=== PATIENT | female | born 1935 | race Caucasian/White ===

== ENCOUNTER 2019-02-17 18:25 | Emergency (ER) | payer OTHER ==
[~2019-02-17] VITALS: Ht 154.9 cm; Wt 68.0 kg
--- OUTSIDE RECORDS SUMMARY | 2019-02-17 18:27 | XMS REPORT | Summary of Care ---
Author Author [facility] Organization [facility] Address Unknown Phone Unavailable Encounter ROCK Aparicio(FIN) [id number] Date(s): 02/18/18 - 02/18/18 [facility] [address] [place] [phone] Discharge Disposition: Home or Self Care Attending Physician: Kalyan Rob MD Vital Signs No data available for this section Problem List Condition Effective Dates Status Health Status Informant Arthritis1 Active Benign hypertension2 Active Coronary Active arteriosclerosis3 Epidermoid cyst of 05/10/08 Active skin4 Hypercholesterolemia Active 5 Hypothyroidism6 Active Obesity7 Active Urgent desire to 04/26/08 Active urinate8 1Data migrated from [employer] on 03/25/15. 2Data migrated from [employer] on 03/25/15. 3Data migrated from [employer] on 03/25/15. 4Data migrated from [employer] on 03/25/15. 5Data migrated from [employer] on 03/25/15. 6Data migrated from [employer] on 03/25/15. 7Data migrated from [employer] on 03/25/15. 8Data migrated from [employer] on 03/25/15. Allergies, Adverse Reactions, Alerts Substance Reaction Severity Status penicillins1 Active macrolide antibiotics Active erythromycin2 Active Levaquin Active 1Data migrated from [employer] on 05/25/15. Originally documented as PCN. 2Data migrated from [employer] on 02/23/15. Originally documented as ERYTHROMYCIN. Medications No data available for this section Results No data available for this section Immunizations Given and Recorded Vaccine Date Status Refusal Reason pneumococcal 23-valent vaccine1 10/27/07 Given Hx influenza vaccine-unspecified2 07/27/07 Given 1Result Comment: pneumovax. Migrated from OBS ; Data migrated from [employer] on 11/27/2015. 2Result Comment: fluvax. Migrated from OBS ; Data migrated from [employer] on 11/27/2015. Procedures No data available for this section Social History No data available for this section Assessment and Plan No data available for this section
--- OUTSIDE RECORDS SUMMARY | 2019-02-17 18:27 | XMS REPORT | Summary of Care ---
Author Organization Unknown Address Unknown Phone Unavailable Encounter ROCK Aparicio(MATIAS) [id number] Date(s): 02/24/14 - 02/25/14 [facility] [address] Discharge Diagnosis: Acute gastritis Discharge Disposition: Home Physician Attending: Alen Serrano MD Reason for Visit CHEST PAIN Vital Signs 1 2 3 Most recent to oldest [Reference Range]: 98.0 DegF (02/25/14 2:32 AM) 97.9 DegF (02/24/14 10:20 PM) Temperature Oral [96.4-99.1 DegF] 148 mmHg *HI* (02/25/14 2:32 AM) 145 mmHg *HI* (02/24/14 11:25 PM) 151 mmHg *HI* (02/24/14 10:20 PM) Systolic Blood Pressure [90-140 mmHg] 65 mmHg (02/25/14 2:32 AM) 62 mmHg (02/24/14 11:25 PM) 63 mmHg (02/24/14 10:20 PM) Diastolic Blood Pressure [60-90 mmHg] 16 BRMIN (02/25/14 2:32 AM) 16 BRMIN (02/24/14 11:25 PM) 18 BRMIN (02/24/14 10:20 PM) Respiratory Rate [14-20 BRMIN] 62 bpm (02/25/14 2:32 AM) 56 bpm *LOW* (02/24/14 11:25 PM) 63 bpm (02/24/14 10:20 PM) Peripheral Pulse Rate [60-100 bpm] Problem List No data available for this section Allergies, Adverse Reactions, Alerts Substance Reaction Severity Status erythromycin Active Levaquin Active macrolide antibiotics Active penicillins Active Medications morphine Sulfate 1 mg, Route: IV, ONCE, Dosing Weight 80.909, kg, Start date: 02/25/14 1:43:00, S top date: 02/25/14 1:43:00 Start Date: 02/25/14 Stop Date: 02/25/14 Status: Completed Prevacid 30 mg oral delayed release capsule 30 mg=1 cap, PO, Daily, # 30 cap, 0 Refill(s) Start Date: 02/25/14 Status: Ordered Saline Flush 0.9% 5 mL, Route: IVP, Drug Form: INJ, Dosing Weight 80.909, kg, Q8H, PRN Line Flush, Start date: 02/24/14 22:47:00, Duration: 30 day, Stop date: 03/26/14 22:46:00, Administer at least once every 8 hours Special Instructions: Administer at least once every 8 hours Notes: (Same as: BD Posiflush) Start Date: 02/24/14 Stop Date: 02/25/14 Status: Discontinued Results ELECTROLYTES Most recent to 1 oldest [Reference Range]: Sodium Lvl [135-145 133 mEq/L mEq/L] *LOW* (02/24/14 11:00 PM) Potassium Lvl 4.6 mEq/L [3.5-5.1 mEq/L] (02/24/14 11:00 PM) Chloride Lvl [95-109 101 mEq/L mEq/L] (02/24/14 11:00 PM) CO2 [24-32 mEq/L] 20 mEq/L *LOW* (02/24/14 11:00 PM) AGAP [10.0-20.0 16.6 mEq/L mEq/L] (02/24/14 11:00 PM) CHEM PANEL Most recent to 1 oldest [Reference Range]: Creatinine Lvl 1.8 mg/dL [0.5-1.4 mg/dL] *HI* (02/24/14 11:00 PM) eGFR 26 mL/min/1.73m2 1 *NA* (02/24/14 11:00 PM) BUN [7-22 mg/dL] 38 mg/dL *HI* (02/24/14 11:00 PM) B/C Ratio [6-25] 21 (02/24/14 11:00 PM) Glucose Lvl [70-99 135 mg/dL 2 mg/dL] *HI* (02/24/14 11:00 PM) Total Protein 7.8 g/dL [6.4-8.4 g/dL] (02/24/14 11:00 PM) Albumin Lvl [3.5-5.0 3.8 g/dL g/dL] (02/24/14 11:00 PM) Globulin [2.0-4.0 4.0 g/dL g/dL] (02/24/14 11:00 PM) A/G Ratio [0.7-1.6] 1.0 (02/24/14 11:00 PM) Calcium Lvl 9.0 mg/dL [8.5-10.5 mg/dL] (02/24/14 11:00 PM) ALT [0-65 unit/L] 15 unit/L (02/24/14 11:00 PM) AST [0-37 unit/L] 21 unit/L (02/24/14 11:00 PM) Alk Phos [39-136 75 unit/L unit/L] (02/24/14 11:00 PM) Bili Total [0.2-1.3 0.3 mg/dL mg/dL] (02/24/14 11:00 PM) Lipase Lvl [73-393 183 unit/L unit/L] (02/24/14 11:00 PM) 1Result Comment: The eGFR is calculated using the CKD-EPI formula. In most young, healthy individuals the eGFR will be >90 mL/min/1.73m2. The eGFR declines with age. An eGFR of 60-89 may be normal in some populations, particularly the elderly, for whom the CKD-EPI formula has not been extensively validated. Use of the eGFR is not recommended in the following populations: Individuals with unstable creatinine concentrations, including patients and those with serious co-morbid conditions. Patients with extremes in muscle mass or diet. The data above are obtained from the National Kidney Disease Education Program ( NKDEP) which additionally recommends that when the eGFR is used in patients with extremes of body mass index for purposes of drug dosing, the eGFR should be mul tiplied by the estimated BMI. 2Interpretive Data: Adult reference range values reflect the clinical guidelines of the [place] Diabetes [employer]. CARDIAC ENZYMES Most recent to 1 oldest [Reference Range]: Total CK [12-191 69 unit/L unit/L] (02/24/14 11:00 PM) CK MB [0.5-3.6 1.6 ng/mL ng/mL] (02/24/14 11:00 PM) CK MB Index 2.3 [0.0-2.5] (02/24/14 11:00 PM) Troponin-I <0.02 ng/mL [0.00-0.40 ng/mL] (02/24/14 11:00 PM) HEMATOLOGY Most recent to 1 oldest [Reference Range]: WBC [3.7-10.4 K/CMM] 10.2 K/CMM (02/24/14 11:00 PM) RBC [4.20-5.40 3.71 M/CMM M/CMM] *LOW* (02/24/14 11:00 PM) Hgb [12.0-16.0 g/dL] 11.5 g/dL *LOW* (02/24/14 11:00 PM) Hct [36.0-48.0 %] 34.3 % *LOW* (02/24/14 11:00 PM) MCV [81.0-99.0 fL] 92.4 fL (02/24/14 11:00 PM) MCH [27.0-31.0 pg] 31.0 pg (02/24/14 11:00 PM) MCHC [32.0-36.0 33.6 g/dL g/dL] (02/24/14 11:00 PM) RDW [11.5-14.5 %] 13.6 % (02/24/14 11:00 PM) Platelet [133-450 224 K/CMM K/CMM] (02/24/14 11:00 PM) MPV [7.4-10.4 fL] 11.1 fL *HI* (02/24/14 11:00 PM) Segs [45.0-75.0 %] 72.5 % (02/24/14 11:00 PM) Lymphocytes 14.2 % [20.0-40.0 %] *LOW* (02/24/14 11:00 PM) Monocytes [2.0-12.0 8.5 % %] (02/24/14 11:00 PM) Eosinophils [0.0-4.0 2.7 % %] (02/24/14 11:00 PM) Basophils [0.0-1.0 2.1 % %] *HI* (02/24/14 11:00 PM) Segs-Bands # 7.4 K/CMM [1.5-8.1 K/CMM] (02/24/14 11:00 PM) Lymphocytes # 1.5 K/CMM [1.0-5.5 K/CMM] (02/24/14 11:00 PM) Monocytes # [0.0-0.8 0.9 K/CMM K/CMM] *HI* (02/24/14 11:00 PM) Eosinophils # 0.3 K/CMM [0.0-0.5 K/CMM] (02/24/14 11:00 PM) Basophils # [0.0-0.2 0.2 K/CMM K/CMM] (02/24/14 11:00 PM) RBC Morph Normal (02/24/14 11:00 PM) Plt Morph Normal (02/24/14 11:00 PM) PT [12.0-14.7 12.7 seconds seconds] (02/24/14 11:00 PM) INR [0.85-1.17] 0.96 3 (02/24/14 11:00 PM) PTT [22.9-35.8 29.1 seconds 4 seconds] (02/24/14 11:00 PM) 3Interpretive Data: RECOMMENDED RANGES FOR PROTIME INR: 2.0-3.0 for most medical and surgical thromboembolic states. 2.5-3.5 for artificial heart valves and recurrent embolism. INR SHOULD BE USED ONLY FOR PATIENTS ON STABLE ANTICOAGULANT THERAPY. 4Interpretive Data: Heparin Therapeutic Range: 57 - 92 Seconds Medications Administered During Your Visit No data available for this section Immunizations No data available for this section
--- OUTSIDE RECORDS SUMMARY | 2019-02-17 18:27 | XMS REPORT | Continuity of Care Document ---
Author Author [facility] Interface Address Unknown Phone Unavailable Problems Problem Status Onset Date Classification Date Reported Comments Source Encounter for general adult medical examination with abnormal findings 02/04/2018 05/05/2018 [facility] [place] Discharge Diagnosis: Acute gastritis 02/25/2014 02/27/2014 [facility] CHEST PAIN Active 02/24/2014 [facility] Epidermoid cyst of skin<sup>4</sup> Active 05/10/2008 Problem 05/05/2018 Data migrated from [employer] on 03/25/15. [facility] [place] Urgent desire to urinate<sup>8</sup> Active 04/26/2008 Problem 05/05/2018 Data migrated from [employer] on 03/25/15. [facility] [place] Arthritis<sup>1</sup> Active Problem 05/05/2018 Data migrated from [employer] on 03/25/15. [facility] [place] Benign hypertension<sup>2</sup> Active Problem 05/05/2018 Data migrated from [employer] on 03/25/15. [facility] [place] Coronary arteriosclerosis<sup>3</sup> Active Problem 05/05/2018 Data migrated from [employer] on 03/25/15. [facility] [place] Hypercholesterolemia<sup>5</sup> Active Problem 05/05/2018 Data migrated from [employer] on 03/25/15. [facility] [place] Hypothyroidism<sup>6</sup> Active Problem 05/05/2018 Data migrated from [employer] on 03/25/15. [facility] [place] Obesity<sup>7</sup> Active Problem 05/05/2018 Data migrated from [employer] on 03/25/15. [facility] [place] Atelectasis 05/05/2018 [facility] [place] Medications Medication Details Route Status Patient Instructions Ordering Provider Order Date Source lansoprazole 30 MG Enteric Coated Capsule [Prevacid] 30 mg=1 cap, PO, Daily, # 30 cap, 0 Refill(s) Active 02/25/2014 [facility] Morphine 1 mg, Route: IV, ONCE, Dosing Weight 80.909, kg, Start date: 02/25/14 1:43:00, Stop date: 02/25/14 1:43:00 Inactive 02/25/2014 [facility] Saline Flush 0.9% 5 mL, Route: IVP, Drug Form: INJ, Dosing Weight 80.909, kg, Q8H, PRN Line Flush, Start date: 02/24/14 22:47:00, Duration: 30 day, Stop date: 03/26/14 22:46:00, Administer at least once every 8 hoursSpecial Instructions: Administer at least once every 8 hoursNotes: (Same as: BD Posiflush) No Longer Active 02/25/2014 [facility] Allergies, Adverse Reactions, Alerts Substance Category Reaction Severity Reaction type Status Date Reported Comments Source erythromycin Assertion Drug allergy Active 06/23/2004 [facility] penicillins Assertion Propensity to adverse reactions to drug Active 06/23/2004 [facility] penicillins<sup>1</sup> Assertion Drug allergy Active 06/23/2004 Data migrated from [employer] on 05/25/15. Originally documented as PCN. YEVGENIY Nguyenadena erythromycin<sup>2</sup> Assertion Drug allergy Active 06/23/2004 Data migrated from [employer] on 02/23/15. Originally documented as ERYTHROMYCIN. YEVGENIY Rivera Levaquin Assertion Drug allergy Active YEVGENIY Arreguina macrolide antibiotics Assertion Drug allergy Active YEVGENIY Rivera Immunizations Immunization Date Given Site Status Last Updated Comments Source pneumococcal 23-valent vaccine<sup>1</sup> 10/27/2007 completed GE Result Comment: pneumovax. Migrated from OBS ; Data migrated from [employer] on 11/27/2015. YEVGENIY Rivera Hx influenza vaccine-unspecified<sup>2</sup> 07/27/2007 completed GE Result Comment: fluvax. Migrated from OBS ; Data migrated from [employer] on 11/27/2015. 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 Mild to moderate diffuse interstitial process with small effusions. No pneumothorax. Mild discogenic degenerative changes are noted. IMPRESSION: Mild to moderate interstitial edema and small effusions. 02/16/2019 - - Read by: Ailyn Coyne MD Dictated Date/time: 02/16/19 14:35 Electronically Signed by: Ailyn Coyne MD 02/16/19 14:36 FINAL REPORT JERARDO Rivera Breast Mammo Scrn SIMON incl CAD MA Breast Mammo Scrn SIMON incl CAD MA BILATERAL DIGITAL SCREENING MAMMOGRAM WITH CAD: 02/18/2018 CLINICAL: Encounter For Screening Mammogram For Malignant Neoplasm Of Breast/Z12.31. Current study was evaluated with a Computer Aided Detection (CAD) system. COMPARISON:No prior exams were available for comparison. TECHNIQUE: Mammographic views were obtained using digital acquisition. Current study was also evaluated with a Computer Aided Detection (CAD) system. FINDINGS: The tissue of both breasts is almost entirely fat. The technologist indicates that the patient was difficult to position and that these are the best films possible. There are benign calcifications in both breasts. No significant masses, calcifications, or other findings are seen in either breast. IMPRESSION: BENIGN RECOMMENDATION:There is no mammographic evidence of malignancy. A 1 year screening mammogram is recommended.(02/19/2019) This exam was interpreted at [id number] for JERARDO Rivera, SL 15. Professional services are provided by the [facility]. Juan Chacko M.D. cm/penrad:02/19/2018 08:21:53 Roller Printer(s): RT Sona(R)(M), [facility] letter sent: BI-RADS 1/2 Mammogram BI-RADS: 2 Benign 02/18/2018 - - Read by: Luca Cao MD Dictated Date/time: 02/19/18 08:21 Electronically Signed by: Luca Cao MD 02/19/18 08:21 FINAL REPORT JERARDO YEVGENIY Rivera Bone Density [employer] MA Bone Density [employer] MA BONE DENSITY ASSESSMENT: 02/18/2018 CLINICAL DATA: Post menopausal. Encounter For Screening For Osteoporosis/Z13.820 RISK FACTORS: race. FINDINGS: Bone density evaluation was performed 02/18/2018 on the right femur neck using a Hologic unit. The BMD average for the exam is 0.748 g/cm2. The T-score is - 0.90 and the Z-score is 1.60. This matches the World Health Organization's criteria for normal bone density and places the patient within normal limits of fracture risk. An additional bone density evaluation was performed 02/18/2018 on the left femur neck using a Hologic unit. The BMD average for the exam is 0.794 g/cm2. The T- score is -0.50 and the Z-score is 2.00. This matches the World Health Organization's criteria for normal bone density and places the patient within normal limits of fracture risk. An additional bone density evaluation was performed 02/18/2018 on the right hip using a Hologic unit. The BMD average for the exam is 0.515 g/cm2. The T-score is -3.50 and the Z-score is -1.20. This matches the World Health Organization's criteria for osteoporosis and places the patient at a high risk for fracture. An additional bone density evaluation was performed 02/18/2018 on the left hip using a Hologic unit. The BMD average for the exam is 0.967 g/cm2. The T-score is 0.20 and the Z-score is 2.50. This matches the World Health Organization's criteria for normal bone density and places the patient within normal limits of fracture risk. An additional bone density evaluation was performed 02/18/2018 on the AP L1-L4 region of spine using a Hologic unit. The BMD average for the exam is 1.196 g/cm2. The T-score is 1.40 and the Z-score is 4.20. This matches the World Health Organization's criteria for normal bone density and places the patient within normal limits of fracture risk. IMPRESSION: OSTEOPOROSIS Patient is at high risk for fracture. This exam was interpreted at [id number] for SHAKA Jones 15. Juan Chacko M.D., cm/isabella:02/19/2018 08:06:21 Roller Printer(s): Tg GUAJARDO)(Veronika), [facility] 02/18/2018 - - Read by: Luca Cao MD Dictated Date/time: 02/19/18 08:06 Electronically Signed by: Luca Cao MD 02/19/18 08:06 FINAL REPORT JERARDO Rivera Chest 2 views DX Chest 2 views DX Exam: Two-view chest x-ray Reason for Exam: - Z00.01 Encounter for general adult medical examination with abnormal findings Comparison Exam: X-ray 02/24/2014 Discussion: Cardiomediastinal silhouette is within normal limits. No pulmonary edema or pleural effusions. Nonspecific atelectasis/mild airspace consolidation seen within the left lung base, obscuring the left hemidiaphragm. Trachea is midline. No acute bony abnormalities. Moderate multilevel degenerative disc disease seen within the thoracic spine. Impression: 1. Nonspecific atelectasis/mild airspace consolidation seen within the left lung base, obscuring the left hemidiaphragm. 01/27/2018 - - Read by: Amadou Genao MD Dictated Date/time: 01/27/18 17:40 Electronically Signed by: Amadou Genao MD 01/27/18 17:42 FINAL REPORT JERARDO Rivera CARDIAC ENZYMES CK MB Index 2.3 0.0 - 2.5 02/25/2014 [facility] CARDIAC ENZYMES CK MB 1.6 ng/mL 0.5 - 3.6 02/25/2014 [facility] CARDIAC ENZYMES Troponin-I null 0.00 - 0.40 02/25/2014 [facility] CARDIAC ENZYMES Total CK 69 unit/L 12 - 191 02/25/2014 [facility] CHEM PANEL Lipase Lvl 183 unit/L 73 - 393 02/25/2014 [facility] CHEM PANEL eGFR 26 mL/min/1.73m2 02/25/2014 1Result Comment: The eGFR is calculated using [...] from the National Kidney Disease Education Program (NKDEP) which additionally recommends that when the eGFR is used in patients with extremes of body mass index for purposes of drug dosing, the eGFR should be multiplied by the estimated BMI. [facility] CHEM PANEL Globulin 4.0 g/dL 2.0 - 4.0 02/25/2014 [facility] CHEM PANEL A/G Ratio 1.0 0.7 - 1.6 02/25/2014 [facility] CHEM PANEL Bili Total 0.3 mg/dL 0.2 - 1.3 02/25/2014 [facility] CHEM PANEL Alk Phos 75 unit/L 39 - 136 02/25/2014 [facility] CHEM PANEL Albumin Lvl 3.8 g/dL 3.5 - 5.0 02/25/2014 [facility] CHEM PANEL Calcium Lvl 9.0 mg/dL 8.5 - 10.5 02/25/2014 [facility] CHEM PANEL Total Protein 7.8 g/dL 6.4 - 8.4 02/25/2014 [facility] CHEM PANEL AGAP 16.6 meq/L 10.0 - 20.0 02/25/2014 [facility] CHEM PANEL B/C Ratio 21 6 - 25 02/25/2014 [facility] CHEM PANEL Chloride Lvl 101 meq/L 95 - 109 02/25/2014 [facility] CHEM PANEL Sodium Lvl 133 meq/L 135 - 145 02/25/2014 [facility] CHEM PANEL Potassium Lvl 4.6 meq/L 3.5 - 5.1 02/25/2014 [facility] CHEM PANEL AST 21 unit/L 0 - 37 02/25/2014 [facility] CHEM PANEL Creatinine Lvl 1.8 mg/dL 0.5 - 1.4 02/25/2014 [facility] CHEM PANEL ALT 15 unit/L 0 - 65 02/25/2014 [facility] CHEM PANEL Glucose Lvl 135 mg/dL 70 - 99 02/25/2014 2Interpretive Data: Adult reference range values reflect the clinical guidelines of the [place] Diabetes [employer]. [facility] CHEM PANEL CO2 20 meq/L 24 - 32 02/25/2014 [facility] CHEM PANEL BUN 38 mg/dL 7 - 22 02/25/2014 [facility] HEMATOLOGY Segs 72.5 % 45.0 - 75.0 02/25/2014 [facility] HEMATOLOGY Lymphocytes 14.2 % 20.0 - 40.0 02/25/2014 [facility] HEMATOLOGY RBC Morph Normal (02/24/14 11:00 PM) 02/25/2014 [facility] Monocytes # 0.9 K/CMM 0.0 - 0.8 02/25/2014 [facility] Eosinophils 2.7 % 0.0 - 4.0 02/25/2014 [facility] Eosinophils # 0.3 K/CMM 0.0 - 0.5 02/25/2014 [facility] Basophils # 0.2 K/CMM 0.0 - 0.2 02/25/2014 [facility] Plt Morph Normal (02/24/14 11:00 PM) 02/25/2014 [facility] Basophils 2.1 % 0.0 - 1.0 02/25/2014 [facility] Lymphocytes # 1.5 K/CMM 1.0 - 5.5 02/25/2014 [facility] Segs-Bands # 7.4 K/CMM 1.5 - 8.1 02/25/2014 [facility] Monocytes 8.5 % 2.0 - 12.0 02/25/2014 [facility] PTT 29.1 s 22.9 - 35.8 02/25/2014 4Interpretive Data: Heparin Therapeutic Range: 57 - 92 Seconds [facility] PT 12.7 s 12.0 - 14.7 02/25/2014 [facility] INR 0.96 0.85 - 1.17 02/25/2014 3Interpretive Data: RECOMMENDED RANGES FOR PROTIME INR: 2.0-3.0 for most medical and surgical thromboembolic states. 2.5-3.5 for artificial heart valves and recurrent embolism. INR SHOULD BE USED ONLY FOR PATIENTS ON STABLE ANTICOAGULANT THERAPY. [facility] Hgb 11.5 g/dL 12.0 - 16.0 02/25/2014 [facility] RBC 3.71 M/CMM 4.20 - 5.40 02/25/2014 [facility] WBC 10.2 K/CMM 3.7 - 10.4 02/25/2014 [facility] Hct 34.3 % 36.0 - 48.0 02/25/2014 [facility] MCHC 33.6 g/dL 32.0 - 36.0 02/25/2014 [facility] MCH 31.0 pg 27.0 - 31.0 02/25/2014 [facility] MCV 92.4 fL 81.0 - 99.0 02/25/2014 [facility] MPV 11.1 fL 7.4 - 10.4 02/25/2014 [facility] HEMATOLOGY Platelet 224 K/CMM 133 - 450 02/25/2014 [facility] HEMATOLOGY RDW 13.6 % 11.5 - 14.5 02/25/2014 [facility] Vital Signs Vital Sign Value Date Comments Source Respitory Rate 16 02/25/2014 [facility] Systolic (mm Hg) 148 02/25/2014 [facility] Diastolic (mm Hg) 65 02/25/2014 [facility] Temperature Oral (F) 98.0 F 02/25/2014 [facility] Heart Rate 62 02/25/2014 [facility] Systolic (mm Hg) 145 02/25/2014 [facility] Respitory Rate 16 02/25/2014 [facility] Diastolic (mm Hg) 62 02/25/2014 [facility] Heart Rate 56 02/25/2014 [facility] Respitory Rate 18 02/25/2014 [facility] Temperature Oral (F) 97.9 F 02/25/2014 [facility] Systolic (mm Hg) 151 02/25/2014 [facility] Diastolic (mm Hg) 63 02/25/2014 [facility] Heart Rate 63 02/25/2014 [facility] Encounters Location Location Details Encounter Type Encounter Number Reason For Visit Attending Provider ADM Date DC Date Status Source [facility] [id number] Alen Serrano 02/25/2014 02/25/2014 [facility] [place] [id number] Kalyan Rob 01/27/2018 01/28/2018 YEVGENIY Rivera [facility] [place] [facility] [id number] Kalyan Rob 02/18/2018 02/19/2018 YEVGENIY Rivera Procedures Procedure Code Date Perfomer Comments Source
--- OUTSIDE RECORDS SUMMARY | 2019-02-17 18:27 | XMS REPORT | Summary of Care ---
Author Author [facility] [place] Organization [facility] [place] Address Unknown Phone Unavailable Encounter HQ Markus(FIN) [id number] Date(s): 01/27/18 - 01/27/18 [facility] [place] [address] [place] [phone] Encounter Diagnosis Encounter for general adult medical examination with abnormal findings (Final) - 02/03/18 Atelectasis (Final) - Discharge Disposition: Home or Self Care Attending [...] Date Status Refusal Reason pneumococcal 23-valent vaccine1 1/1/08 Given Hx influenza vaccine-unspecified2 07/27/07 Given 1Result Comment: pneumovax. Migrated from OBS ; Data migrated from [employer] on 11/27/2015. 2Result Comment: fluvax. Migrated from OBS ; Data migrated from [employer] on 11/27/2015. Procedures No data available for this section Social History No data available for this section Assessment and Plan No data available for this section
--- OUTSIDE RECORDS SUMMARY | 2019-02-17 18:27 | XMS REPORT ---
Author Author [facility] Address Unknown Phone Unavailable Care Team Providers Care Faculty Criminal Justice Name Role Phone Unavailable Unavailable Payers Payer Name Policy Type Policy Number Effective Date Expiration Date Problems This patient has no known problems. Allergies, Adverse Reactions, Alerts Allergy Name Allergy Type Status Severity Reaction(s) Onset Date Inactive Date Treating Clinician Comments Penicillins DA Active SV 2011-06-19 00:00:00 prednisone DA Active SV 2011-06-19 00:00:00 erythromycin base DA Active [place] 2011-06-19 00:00:00 Medications This patient has no known medications.
[2019-02-17 19:23] LABS: BASOPHILS # (AUTO) 0.1 (0.0-0.1); BASOPHILS % 0.9 % (0.0-1.0); EOSINOPHILS # (AUTO) 0.1 (0.0-0.4); EOSINOPHILS % 1.6 % (0.0-6.0); HEMATOCRIT 25.1 % (34.2-44.1); HEMOGLOBIN 7.6 g/dL (12.0-16.0); LYMPHOCYTES # (AUTO) 0.9 (1.0-3.2); LYMPHOCYTES % 12.7 % (18.0-39.1); MEAN CORPUSCULAR HEMOGLOBIN 30.8 pg (28-32); MEAN CORPUSCULAR HGB CONC 30.3 g/dL (31-35); MEAN CORPUSCULAR VOLUME 101.6 fL (81-99); MONOCYTES % 14.1 % (4.4-11.3); NEUTROPHILS # (AUTO) 4.7 (2.1-6.9); NEUTROPHILS % 70.1 % (38.7-80.0); PLATELET COUNT 247 x10e3/uL (140-360); RED BLOOD COUNT 2.47 x10e6/uL (3.6-5.1); RED CELL DISTRIBUTION WIDTH 15.5 % (11.7-14.4)
[2019-02-17 19:29] LABS: PROTHROMBIN TIME 13.7 seconds (11.9-14.5)
[2019-02-17 19:30] LABS: PARTIAL THROMBOPLASTIN TIME 28.1 seconds (23.8-35.5)
[2019-02-17 19:36] LABS: ALBUMIN 3.1 g/dL (3.5-5.0); ALBUMIN/GLOBULIN RATIO 0.8 (0.8-2.0); ANION GAP 15.5 mmol/L (8-16); CALCIUM 9.3 mg/dL (8.4-10.2); CREATININE, SERUM 2.16 mg/dL (0.57-1.11); POTASSIUM 4.5 mmol/L (3.5-5.1)
[2019-02-17 19:45] LABS: CREATINE KINASE MB 1.4 ng/mL (0-5.0)
[2019-02-17] MEDS ORDERED: HYDROCODONE/APAP 5MG-325MG TAB ONE (20:20)
--- NOTE | 2019-02-17 22:02 | Diagnostic Imaging Report ---
EXAMINATION: CHEST 2 VIEWS INDICATION: Shortness of breath COMPARISON: None FINDINGS: TUBES and LINES: None. LUNGS: Lungs are well inflated. Bibasilar atelectasis. There is mild prominence of the central pulmonary vasculature, consistent with pulmonary venous congestion. PLEURA: Trace pleural effusion bilaterally. No pneumothorax. HEART AND MEDIASTINUM: Cardiac size is moderately enlarged. There are atherosclerotic calcifications within the aorta. BONES AND SOFT TISSUES: There are degenerative changes in the thoracic spine. UPPER ABDOMEN: No free air under the diaphragm. IMPRESSION: Findings suggestive of decompensated CHF with bilateral pulmonary venous congestion. Signed by: Dr. Den Loya M.D. on 02/17/2019 9:58 PM
--- NOTE | 2019-02-17 22:21 | NUR ---
REC'D PT IN RM 7 FROM THE LOBBY FOR POSSIBLE BLOOD TRANSFUSION. PLACED ON THE MONITOR AND IN A GOWN. FAMILY AT SIDE
[2019-02-17] MEDS ORDERED: FUROSEMIDE INJ 10 MG/ML 4 ML VIAL ONE (22:58)
--- NOTE | 2019-02-18 00:15 | NUR ---
DR. LUCERO IN ROOM WITH PT AT THIS TIME. REPORT GIVEN TO CHERI ORDONEZ FOR CONTINUITY OF CARE.
[2019-02-18 00:49] LABS: CLARITY,URINE CLOUDY (CLEAR); COLOR,URINE YELLOW (YELLOW)
[2019-02-18 00:50] LABS: BILIRUBIN,URINE NEGATIVE (NEGATIVE); KETONES,URINE NEGATIVE (NEGATIVE); LEUKOCYTE ESTERASE ,URINE 2+ (NEGATIVE); NITRITE,URINE POSITIVE (NEGATIVE); PROTEIN,URINE DIPSTICK NEGATIVE (NEGATIVE); URINE UROBILINOGEN 0.2 mg/dL (0.2 - 1)
[2019-02-18 00:55] LABS: BACTERIA,URINE MANY /HPF; EPITHELIAL CELLS,URINE FEW /LPF; WBC,URINE (MAN) >50 /HPF (0-5)
[2019-02-18] MEDS ORDERED: CARVEDILOL12.5 MG PO (07:14)
[2019-02-18] MEDS ORDERED: ALENDRONATE SOD70 MG PO (07:14)
[2019-02-18] MEDS ORDERED: CITALOPRAM HBR20 MG PO (07:14)
[2019-02-18] MEDS ORDERED: FUROSEMIDE40 MG PO (07:14)
[2019-02-18] MEDS ORDERED: FERROUS SULFAT325 MG PO (07:14)
[2019-02-18] MEDS ORDERED: DILTIAZEM HCL60 MG PO (07:14)
[2019-02-18] MEDS ORDERED: LEVOTHYROXINE88 MCG PO (07:14)
[2019-02-18] MEDS ORDERED: HYDRALAZINE HCL10 MG PO (07:14)
== END 2019-02-18 00:50 | disposition home or self-care (01) ==
LOC: ER 18:25
DX: I50.21 Acute systolic (congestive) heart failure (principal)
CPT/HCPCS: 36415; 71046; 80053; 81001; 82550; 82553; 83880; 84484; 85025; 85610; 85730; 86850; 86900; 99283; J1940

== ENCOUNTER 2019-02-17 23:23 | Inpatient (IN) | payer OTHER ==
[~2019-02-17] VITALS: Ht 152.4 cm; Wt 73.0 kg
[2019-02-18] VITALS (9 sets, daily range): BP systolic 122–181; BP diastolic 60–74
[2019-02-18] MEDS ORDERED: SODIUM CHLORIDE 0.9% 250ML 250 ML IV ONE (01:00)
--- NOTE | 2019-02-18 01:00 | NUR ---
Report received from Alyssa Lazcano RN. Pt direct admit. Pt received to unit and pt is A&O and in no apparent distress. Room air, no tele. Pt states she was called by her PCP Dr. Rob's office and told to report to the ER due to her lab results. Pt admitted with hemoglobin 7.6 and dx of anemia with order to transfuse 2 units PRBC. All safety measures ensured, pt bed alarm on, and call chase near. Pt encouraged to use call chase for assistance.
[2019-02-18 01:58] LABS: BASOPHILS % 0.5 % (0.0-1.0); EOSINOPHILS # (AUTO) 0.1 (0.0-0.4); EOSINOPHILS % 1.6 % (0.0-6.0); HEMATOCRIT 24.5 % (34.2-44.1); HEMOGLOBIN 7.6 g/dL (12.0-16.0); LYMPHOCYTES # (AUTO) 0.6 (1.0-3.2); MEAN CORPUSCULAR HEMOGLOBIN 31.1 pg (28-32); MEAN CORPUSCULAR VOLUME 100.4 fL (81-99); MONOCYTES # (AUTO) 0.8 (0.2-0.8); NEUTROPHILS # (AUTO) 4.6 (2.1-6.9); NEUTROPHILS % 74.6 % (38.7-80.0); PLATELET COUNT 222 x10e3/uL (140-360); RED BLOOD COUNT 2.44 x10e6/uL (3.6-5.1); RED CELL DISTRIBUTION WIDTH 15.5 % (11.7-14.4)
[2019-02-18 02:18] LABS: ALBUMIN 3.1 g/dL (3.5-5.0); ALBUMIN/GLOBULIN RATIO 0.9 (0.8-2.0); CREATININE, SERUM 2.18 mg/dL (0.57-1.11)
--- NOTE | 2019-02-18 06:24 | NUR ---
Pt BP started to slightly elevate over course of receiving blood but pt asymptomatic and no fever noted. Pt stated she forgot to take her midnight dose of blood pressure meds. Last BP reading 194/70. Consulted with charge nurse regarding pt BP meds to be given while receiving blood. Advised ok to give. already gave ok for pt to restart home meds and pt took her own meds of Carvedilol 12.5mg 1 tab po and Hydralazine 50mg 1 tab po. Will continue to monitor pt and recheck BP.
--- NOTE | 2019-02-18 07:10 | NUR ---
Pt repeat BP 162/68. Pt asymptomatic and no complaints.
[2019-02-18] MEDS ORDERED: DILTIAZEM HCL60 MG PO (07:14)
[2019-02-18] MEDS ORDERED: FUROSEMIDE40 MG PO (07:14)
[2019-02-18] MEDS ORDERED: FERROUS SULFAT325 MG PO (07:14)
[2019-02-18] MEDS ORDERED: HYDRALAZINE HCL10 MG PO (07:14)
[2019-02-18] MEDS ORDERED: LEVOTHYROXINE88 MCG PO (07:14)
[2019-02-18] MEDS ORDERED: ALENDRONATE SOD70 MG PO (07:14)
[2019-02-18] MEDS ORDERED: CARVEDILOL12.5 MG PO (07:14)
[2019-02-18] MEDS ORDERED: CITALOPRAM HBR20 MG PO (07:14)
--- NOTE | 2019-02-18 07:23 | NUR ---
report given and walking rounds complete. informed day shift RN of 1 unit of blood to still be given, labs, and pt home meds.
[2019-02-18] MEDS ORDERED: FUROSEMIDE 40 MG TAB PO SCH (09:00)
[2019-02-18] MEDS ORDERED: DILTIAZEM HCL 60 MG TAB PO SCH (09:00)
[2019-02-18] MEDS ORDERED: DILTIAZEM HCL 180 MG CAP ER PO SCH (09:00)
[2019-02-18 09:11] LABS: HEMATOCRIT 29.1 % (34.2-44.1); HEMOGLOBIN 9.1 g/dL (12.0-16.0)
[2019-02-18] MEDS ORDERED: FUROSEMIDE INJ 10 MG/ML 4 ML VIAL IV NR (09:30)
[2019-02-18] MEDS: CITALOPRAM HYDROBROMIDE 20 MG TAB PO SCH (09:35)
[2019-02-18] MEDS: DILTIAZEM HCL ER 120 MG CAP PO SCH (09:35)
[2019-02-18] MEDS: FERROUS SULFATE 325 MG TAB PO SCH (09:35)
--- NOTE | 2019-02-18 10:42 | NUR ---
patient leaving unit for CT alert and oriented via wheelchair
--- NOTE | 2019-02-18 10:55 | NUR ---
SOCIAL WORK INITIAL ASSESSMENT Treating Plant Supervisor to bedside to discuss plan of care with patient/family. CM/SW role and care transitions discussed. Anticipated discharge plan discussed along with duration of care. CM/SW discussed patients right to make decisions in care. CM/SW work hours given. Patient lives: IN HOME BY SELF Admit/Transfer: VIA ED POA/Emergency contact: STEP DAUGHTER ROSALBA MORALES Current/Previous Home Health: ASKING FOR SERVICE PCP/Follow-up Care: NIKITA Current/Previous DME: [facility] Other Services: NONE Employment Status: RETIRED Areas of Concerns: BY SELF AND WANTING TO HELP HER; SAID DUE JUST PASSING NEEDS SOMETHING. PT IS TEARFUL Referral Needs: HOME HEALTH Education Needs: NONE IMM/ZURITA given and signed (if applicable): UPON ADMISSION Goal for discharge: RETURN HOME CM/SW left business card at the bedside with contact information. Name and number was also written on the patients whiteboard. Patient verbalized understanding of discussion. CM will follow-up with ongoing discharge and transition of care needs.
[2019-02-18 11:40] LABS: THYROID STIMULATING HORMONE 11.822 uIU/mL (0.350-4.940)
--- NOTE | 2019-02-18 11:45 | Diagnostic Imaging Report ---
TECHNIQUE: CT of the chest, abdomen and pelvis without intravenous contrast. INDICATION: Shortness of breath, anemia. COMPARISON: Chest radiograph 02/17/2019. TECHNIQUE: The chest, abdomen and pelvis were scanned utilizing a multidetector helical scanner from the thoracic inlet to the pubic symphysis without administration of IV or oral contrast. Coronal and sagittal reformations were obtained. Routine protocol was performed. Lack of intravenous contrast limits sensitivity for evaluation of vascular or visceral structures. COMPLICATIONS: None RADIATION DOSE: Total DLP: 744.6 mGy*cm Dose modulation, iterative reconstruction, and/or weight based adjustment of the mA/kV was utilized to reduce the radiation dose to as low as reasonably achievable. FINDINGS: LINES AND TUBES: None LUNGS AND AIRWAYS/PLEURA: The central airways are patent. There is moderate centrilobular apical predominant emphysematous changes of the lungs. There is a small right and a trace left pleural effusion. There is smooth lower lobe predominant interlobular septal thickening with mild patchy groundglass opacities, for example on series 4, image 91. Mild patchy consolidative opacity in the right greater than left lower lobes. Scattered tiny nodular opacities, for example a 4 mm groundglass nodular opacity in the left upper lobe on image 32. There is a 4 mm subpleural solid nodule in the right upper lobe on image 33. There is a groundglass opacity in the right upper lobe on image 52. HEART AND MEDIASTINUM: The thyroid gland is normal. There are enlarged mediastinal lymph nodes, for example a 1.5 cm right paratracheal lymph node with fatty hilum on series 2, image 22, and AP window lymph node measuring up to 1.1 cm on image 22. There is a 1.9 cm subcarinal lymph node on image 28. Mild cardiomegaly. No pericardial effusion. Coronary and aortic atherosclerotic calcifications. There are mitral annular calcifications. HEPATOBILIARY: Indeterminate 1.9 cm hypodensity in the right hepatic lobe on series 2, image 57. Subcentimeter right hepatic lobe hypodensity is too small to characterize, but likely represents a cyst. No biliary ductal dilatation. SPLEEN: No splenomegaly. PANCREAS: No focal masses or ductal dilatation. ADRENALS: No adrenal nodules. KIDNEYS/URETERS: Atrophic left kidney. No evidence of hydronephrosis. There is a 4 mm calcification which may be vascular or a right mid pole calyceal stone on series 2, image 67. Is an additional 3 mm left mid pole calcification which may be vascular or calyceal. PELVIC ORGANS/BLADDER: Unremarkable. PERITONEUM / RETROPERITONEUM: No free air or fluid. LYMPH NODES: No lymphadenopathy. VESSELS: Extensive atherosclerotic calcifications of the abdominal aorta and branch vessels. There is a right common iliac arterial stent. Limited evaluation of vasculature in the absence of IV contrast. GI TRACT: No distention or wall thickening. There is colonic diverticulosis without CT evidence of diverticulitis. The appendix is not well-visualized. BONES AND SOFT TISSUES: Asymmetric severe degenerative changes of the right hip with subchondral sclerosis, [id number] contact, subchondral cystic change. IMPRESSION: Moderate emphysematous changes of the lungs with small right and trace left pleural effusions and patchy opacities in the lower lobes, likely atelectasis. Multifocal groundglass opacities with smooth interlobular septal thickening, likely representing pulmonary edema. Mildly enlarged mediastinal lymph nodes are likely reactive. Superimposed aspiration or early pneumonia is possible in the appropriate clinical setting. Follow-up chest CT is suggested in 3 months to assess for resolution. Scattered bilateral solid and groundglass nodular opacities measuring up to 4 mm, which may be infectious or inflammatory. These can be evaluated on follow-up chest CT. No acute CT findings in the abdomen or pelvis. Possible nonobstructive bilateral renal stones versus vascular calcifications as above. Signed by: Dr. Shayla Pablo MD on 02/18/2019 11:41 AM
[2019-02-18 12:02] LABS: FOLATE 17.1 ng/mL (7.0-15.4)
[2019-02-18] MEDS ORDERED: SODIUM CHLORIDE 0.9% 250ML 250 ML ONE (14:11)
[2019-02-18] MEDS ORDERED: ACETAMINOPHEN 325 MG TAB PO ONE (14:15)
--- NOTE | 2019-02-18 15:27 | History and Physical ---
PCP: Dr. Kalyan Rob. CHIEF COMPLAINT: Anemia, blood transfusion, chronic kidney disease stage 3. HISTORY OF PRESENT ILLNESS: An 84-year-old female with progressive increasing shortness of breath, found to have anemia, hemoglobin and hematocrit of 7.6 and 24.5. The patient is placed on observation for blood transfusion. She had no history of blood transfusion previously. The patient does have chronic kidney disease stage 3. BUN and creatinine are 40 and 2.1. The patient is stable. PAST MEDICAL HISTORY: Peripheral vascular disease with stent in both lower extremities. Chronic kidney disease stage 3. Hypertension, osteoporosis, hypothyroidism. Depression. The patient's spouse just recently passed. SOCIAL HISTORY: The patient was an ex-smoker, last smoke was many years ago. No alcohol. No recreational drugs. ALLERGIES: PENICILLIN. HOME MEDICATIONS: Alendronate, Coreg, Celexa, diltiazem, ferrous sulfate, Lasix, hydralazine, and levothyroxine. PHYSICAL EXAMINATION: VITAL SIGNS: Temperature is 98, blood pressure 153/67, pulse rate 69, respirations 18. GENERAL: The patient is in no acute distress. She is awake. HEENT: Normocephalic, atraumatic. Anicteric. NECK: Supple grossly. PULMONARY: Clear. CARDIOVASCULAR: Regular rate and rhythm. ABDOMEN: Soft and unremarkable. EXTREMITIES: No cyanosis or edema. NEUROLOGIC: No gross focal deficit. LABORATORY DATA: WBC 6.2, hemoglobin 7.6, hematocrit 24.5, platelets are 222. Sodium is 136, potassium is 4, chloride 110, bicarb 15, BUN is 40, creatinine 2.1, glucose is 119. IMAGING TESTS: Chest x-ray; finding suggestive of decompensated congestive heart failure with bilateral pulmonary venous congestion. IMPRESSION: 1. Acute congestive heart failure, etiology unclear. 2. Anemia may cause the above heart failure. 3. Chronic kidney disease stage 3. PLAN: IV Lasix. We will check the patient's lab work after blood transfusion. Fecal occult blood. CT abdomen and pelvis. We will monitor the patient closely on observation at this time. MD KEAGAN Banks/VIANCA /[id number]
[2019-02-18 18:28] LABS: CLARITY,URINE CLOUDY (CLEAR); COLOR,URINE YELLOW (YELLOW); LEUKOCYTE ESTERASE ,URINE 2+ (NEGATIVE); NITRITE,URINE POSITIVE (NEGATIVE)
[2019-02-18 18:29] LABS: BILIRUBIN,URINE NEGATIVE (NEGATIVE); KETONES,URINE NEGATIVE (NEGATIVE); PROTEIN,URINE DIPSTICK NEGATIVE (NEGATIVE); URINE UROBILINOGEN 0.2 mg/dL (0.2 - 1)
[2019-02-18] MEDS: AZTREONAM 1 GM/NS 50 ML 50 ML IV SCH (18:31)
[2019-02-18] MEDS: SENNA-S TABLET PO SCH (18:31)
[2019-02-18 18:40] LABS: BACTERIA,URINE MANY /HPF; WBC,URINE (MAN) >50 /HPF (0-5)
--- NOTE | 2019-02-18 19:10 | NUR ---
rounded with group insurance special agent nurse, patient aware of change and in no distress. call chase within reach and bed in lowest position
--- NOTE | 2019-02-18 19:15 | NUR ---
Report received and walking rounds complete. Pt resting in bed and in no apparent distress. All safety measures ensured.
--- NOTE | 2019-02-18 19:44 | Consultation ---
DATE OF CONSULTATION: REASON FOR CONSULT: Shortness of breath. HISTORY OF PRESENT ILLNESS: Ms. Finney is an 84-year-old lady with past medical history as listed below. Apparently, she has been experiencing shortness of breath since September. However, her was ill and so she decided not to seek medical attention. Her last week and children prompted her to come and seek medical attention. She states she gets very tired easily. Denies any chest pain. No abdominal pain, vomiting, or diarrhea. She is short of breath at rest and on minimal exertion. Denies any leg swelling. No abdominal pain, vomiting, or diarrhea. The patient was anemic and was given blood transfusion. ALLERGIES: PENICILLIN. MEDICATIONS: See list. REVIEW OF SYMPTOMS: CONSTITUTIONAL: Some fatigue and weakness. HEENT: No headache, blurring of vision, seizure, or syncope. CARDIOVASCULAR: No chest pain. Has dyspnea. No orthopnea or PND. RESPIRATORY: No cough, fever, or expectoration. GI: No abdominal pain, vomiting, or diarrhea. : No dysuria, frequency, or incontinence. PAST MEDICAL HISTORY: History of hypertension, history of CKD, and history of hypothyroidism. SOCIAL HISTORY: Does not smoke or drink. FAMILY HISTORY: Noncontributory. PHYSICAL EXAMINATION: GENERAL: Markedly built, well nourished lady, alert, oriented, not in any obvious distress. VITAL SIGNS: Heart rate is 74, blood pressure is 160/68, respirations 16, and temperature 97.8. HEENT: Atraumatic. NECK: No JVD, bruit, thyromegaly, or lymphadenopathy. CARDIOVASCULAR: First and second heart sounds heard. A 2/6 systolic murmur heard at the left sternal border. CHEST: Decreased air entry at the bases. No adventitious sounds appreciated. ABDOMEN: Soft, nontender. EXTREMITIES: No edema. LABS: Sodium is 136, potassium 4.0, chloride 110, BUN is 40, creatinine is 2.1, AST 17, ALT is 10, and alkaline phosphatase is 70. TSH is 11.8. WBC 6.2; hemoglobin 7.6, it has gone up to 9.1; hematocrit is 24.5, it has gone up to 29.1; and platelets 222. IMPRESSION: 1. Dyspnea. 2. Anemia. 3. History of hypertension. 4. Chronic kidney disease. 5. Hypothyroidism. PLAN: 1. The patient was given blood transfusion. Her H and H has come up. 2. Get echocardiogram to assess LV function and valvular function. 3. Check BNP. 4. Optimize antihypertensives. 5. Get chest x-ray. 6. Further cardiac workup depending on clinical course. 7. Discussed my impression and plan of management with the patient and she understands. As always, I appreciate and thank you very much for your referral. Rusty Main MD SC/MODL /[id number]
--- NOTE | 2019-02-18 21:05 | NUR ---
Report given to CHERI Nix. Pt transferred to room 114.
[2019-02-19] VITALS (7 sets, daily range): BP systolic 114–142; BP diastolic 53–74
--- NOTE | 2019-02-19 00:50 | Consultation ---
DATE OF CONSULTATION: Gastroenterology Consultation REFERRING PHYSICIAN: Dr. Daniel Magaña. REASON FOR CONSULTATION: Shortness of breath and anemia. HISTORY OF PRESENT ILLNESS: Ms. Finney is a very pleasant 84-year-old woman, who reports a long-standing anemia. She reports she has been chronically on iron most of her life. She came in with shortness of breath and was admitted for blood transfusion. She has chronic kidney disease. She is getting better. She denies any overt bleeding. She had a colonoscopy about 5 years ago and had polyps. Due to age, she had not been considered for a repeat screening colonoscopy. She has not had any bowel habit changes. She has not taken NSAIDs in the past several years due to her renal disease. PAST MEDICAL HISTORY: 1. Peripheral arterial disease. 2. Chronic kidney disease. 3. Hypertension. 4. Osteoporosis. 5. Hypothyroidism. 6. Depression. 7. Chronic iron deficiency anemia her whole life. SOCIAL HISTORY: Remote tobacco. No alcohol. No illicit substances. She was just last week. Her had just been diagnosed with some sort of metastatic malignancy and . MEDICATIONS: Reviewed. Please see [facility] medication reconciliation form. ALLERGIES: REVIEWED. PLEASE SEE [facility] MEDICATION RECONCILIATION FORM. PHYSICAL EXAMINATION: GENERAL: Pleasant, alert, in no acute distress, lying in bed. HEENT: Pupils are equal, round and reactive to light. She has nasal cannula. NECK: Supple. LUNGS: Decreased . CARDIOVASCULAR: S1 and S2. ABDOMEN : Soft, nontender, and nondistended. Normal bowel sounds. EXTREMITIES: No clubbing, cyanosis or edema. PSYCHIATRIC: Calm, cooperative. NEUROLOGIC: Nonfocal. HEM/ONC: No bruising or adenopathy. The electronic health records were reviewed for laboratory and radiologic studies as well as history. ASSESSMENT: 1. Congestive heart failure. 2. Iron deficiency anemia, acute on chronic. 3. Chronic kidney disease. PLAN: At the current time, I think she would benefit from an upper endoscopy to rule out any acute GI bleeding. The FOBT is pending. She is optimized enough for an EGD, we will plan it tomorrow. She is declining colonoscopy at this time and given her exam 5 years ago, unlikely to have significant disease in the colon currently. Given the long-standing anemia, I am going to consider celiac disease and get antibody levels. Thank you very much for asking us to see Ms. Finney. Any questions or concerns, please do not hesitate to contact me. Bere Bennett MD RLS/VIANCA /[id number]
[2019-02-19] MEDS ORDERED: ACETAMINOPHEN 325 MG TAB ONE (03:27)
[2019-02-19] MEDS ORDERED: ACETAMINOPHEN 325 MG TAB PO PRN (03:30)
--- NOTE | 2019-02-19 03:56 | Consultation ---
DATE OF CONSULTATION: 02/18/2019 GI Consult Note. REASON FOR CONSULT: Symptomatic anemia. HISTORY OF PRESENTING ILLNESS: An 84-year-old very pleasant white female, who got admitted with progressive shortness of breath, easy fatigability, profound weakness. Blood work revealed significant anemia with a hemoglobin of 7.6. GI has been consulted for further evaluation and recommendation. The patient's MCV is 24.5. On further questioning, the patient stated that she has not been eating very well for last couple of months. Her was sick. She had been taking care of him. Last Friday, the patient's . Since she was looking very weak and pale, therefore the children decided to bring her to the emergency room. She has no past medical history of peptic ulcer disease, never noticed any dark stool. Denies any abdominal pain. Reports no episode of any nosebleed, hemoptysis, hematemesis, hematochezia, melena, or any hematuria. REVIEW OF SYSTEMS: Twelve point system reviewed. Symptomatology is limited as per HPI. PAST MEDICAL HISTORY: Peripheral vascular disease, chronic kidney disease stage 3, hypertension, osteoporosis, hypothyroidism, depression. PAST SURGICAL HISTORY: Peripheral stent, colonoscopy 5 years ago. FAMILY HISTORY: Noncontributory. SOCIAL HISTORY: Former smoker, quit smoking many years ago. No alcohol or any illicit drug use. ALLERGIES: PENICILLIN. HOME MEDICATIONS: Alendronate 70 mg every week, carvedilol 12.5 mg twice daily, citalopram 20 mg daily, diltiazem HCL 60 mg daily, ferrous sulfate 325 mg daily, furosemide 40 mg daily, hydralazine 10 mg daily, levothyroxine 88 mcg daily. Inpatient medication list is reviewed as per MAR. PHYSICAL EXAMINATION: VITAL SIGNS: Temperature 99.5, pulse 70, respirations 18, blood pressure 122/60, oxygen saturation 95% on 2 L of nasal cannula. GENERAL: Not in any acute distress. HEENT: Oral mucosa is moist. Anicteric sclerae. CVS: S1, S2 regular. LUNGS: Bilaterally grossly clear. ABDOMEN: Soft, nondistended, nontender. No palpable mass or hernia. Positive bowel sounds. EXTREMITIES: Warm. No leg edema. LABS: WBC 6.2, hemoglobin 7.6, repeat hemoglobin climbed up to 9.1 after 2 units of packed red blood cell transfusion, hematocrit 24.5, platelet count 222. Sodium 136, potassium 4.0, chloride 110, bicarb 15, BUN 40, creatinine 2.18. Iron profile showed a serum iron 29, TIBC 293, iron saturation 7, and transferrin 28. Liver enzymes normal. Stool occult blood is pending. CT of the abdomen and pelvis without contrast today showed moderate emphysematous changes of the lungs, multifocal ground-glass opacities with smooth interlobular septal thickening likely representing pulmonary edema. Scattered bilateral solid and ground-glass nodular opacities measuring up to 4 mm, which may be infectious or inflammatory. These can be evaluated on followup CT chest. No acute finding in the abdomen and pelvis. Nonobstructive bowel gas pattern. No free fluids. IMPRESSION: Symptomatic anemia with normocytic indices. Appropriate rise in hemoglobin after 2 units of packed red blood cell transfusion. PLAN: Follow stool guaiac results. Check ferritin level. At this point of time with the data in hand, it seems the patient has anemia of chronic kidney disease. I thank Dr. Magaña for allowing me to participate in the care of this patient. Moiz Anand MD SA/FILOMENAL /[id number]
[2019-02-19] MEDS: LEVOTHYROXINE SODIUM 88 MCG TAB PO SCH (05:57)
--- NOTE | 2019-02-19 06:12 | Diagnostic Imaging Report ---
EXAMINATION: CHEST SINGLE (PORTABLE) INDICATION: Shortness of breath COMPARISON: 02/17/2019. FINDINGS: TUBES and LINES: None. LUNGS: Lungs are adequately inflated. Bibasilar atelectasis. There is mild prominence of the central pulmonary vasculature, consistent with pulmonary venous congestion has decreased since the prior exam. PLEURA: Trace pleural effusion bilaterally. No pneumothorax. HEART AND MEDIASTINUM: Cardiac size is moderately enlarged. There are atherosclerotic calcifications of the aorta. BONES AND SOFT TISSUES: There are degenerative changes in the thoracic spine. Soft tissues are unremarkable. UPPER ABDOMEN: No free air under the diaphragm. IMPRESSION: Interval decrease in decrease bilateral pulmonary venous congestion. Signed by: Dr. Den Loya M.D. on 02/19/2019 6:09 AM
[2019-02-19] MEDS ORDERED: ALENDRONATE SODIUM 70 MG TAB PO SCH (06:30)
[2019-02-19] MEDS: AZTREONAM 1 GM/NS 50 ML 50 ML IV SCH ×2 (06:40→18:15)
[2019-02-19 06:44] LABS: BASOPHILS % 0.4 % (0.0-1.0); EOSINOPHILS % 0.3 % (0.0-6.0); HEMATOCRIT 27.6 % (34.2-44.1); HEMOGLOBIN 9.3 g/dL (12.0-16.0); LYMPHOCYTES # (AUTO) 0.8 (1.0-3.2); LYMPHOCYTES % 12.1 % (18.0-39.1); MEAN CORPUSCULAR HEMOGLOBIN 31.4 pg (28-32); MEAN CORPUSCULAR HGB CONC 33.7 g/dL (31-35); MEAN CORPUSCULAR VOLUME 93.2 fL (81-99); MONOCYTES % 14.7 % (4.4-11.3); NEUTROPHILS # (AUTO) 4.8 (2.1-6.9); NEUTROPHILS % 71.8 % (38.7-80.0); PLATELET COUNT 202 x10e3/uL (140-360); RED BLOOD COUNT 2.96 x10e6/uL (3.6-5.1); RED CELL DISTRIBUTION WIDTH 16.4 % (11.7-14.4)
[2019-02-19] MEDS ORDERED: SODIUM CHLORIDE 0.9% 250ML 250 ML ONE (06:44)
[2019-02-19 07:05] LABS: ANION GAP 16.2 mmol/L (8-16); CALCIUM 8.4 mg/dL (8.4-10.2); CREATININE, SERUM 2.34 mg/dL (0.57-1.11); POTASSIUM 3.2 mmol/L (3.5-5.1)
--- NOTE | 2019-02-19 07:05 | NUR ---
BEDSIDE REPORT GIVEN NO DISTRESS NOTED
--- NOTE | 2019-02-19 07:32 | NUR ---
patient resting in bed, rounds done,report given to am nurse.
--- NOTE | 2019-02-19 07:36 | NUR ---
patient remain npo status for procedure.
[2019-02-19] MEDS: DILTIAZEM HCL ER 120 MG CAP PO SCH (09:00)
[2019-02-19] MEDS: FUROSEMIDE INJ 10 MG/ML 4 ML VIAL IV SCH (09:00)
[2019-02-19] MEDS: CITALOPRAM HYDROBROMIDE 20 MG TAB PO SCH (09:00)
[2019-02-19] MEDS: SENNA-S TABLET PO SCH ×2 (09:00→17:00)
[2019-02-19] MEDS: CARVEDILOL 12.5 MG TAB PO SCH ×2 (09:00→17:02)
[2019-02-19] MEDS: AMLODIPINE BESYLATE 5 MG TAB PO SCH (09:00)
[2019-02-19] MEDS: HYDRALAZINE HCL 10 MG TAB PO SCH (09:00)
[2019-02-19] MEDS ORDERED: POTASSIUM CHLORIDE 20 MEQ TAB CR PO ONE (09:10)
[2019-02-19] MEDS ORDERED: AZITHROMYCIN 500MG/NS 250 ML 250 ML IV SCH ×2 (09:45→20:00)
[2019-02-19] MEDS ORDERED: EPINEPHRINE HCL 1:1000 1ML 1 MG/ML AMP ONE (10:52)
--- NOTE | 2019-02-19 11:00 | NUR ---
PT DOWN FOR EGD VIA BED. FAMILY AT BEDSIDE
[2019-02-19] MEDS ORDERED: BENZOCAINE/TETRACAINE/BUTAMBEN AERO SPRAY 56 GM CAN ONE (11:21)
[2019-02-19] MEDS: PANTOPRAZOLE SOD 40 MG TABEC PO SCH (11:45)
[2019-02-19] MEDS ORDERED: DOCUSATE SODIUM 100 MG CAP PO PRN (11:45)
--- NOTE | 2019-02-19 12:02 | NUR ---
PT BACK FROM EGD. NO PAIN VOICED.
[2019-02-19] MEDS: FERROUS SULFATE 325 MG TAB PO SCH (13:42)
[2019-02-19] MEDS: SUCRALFATE 1 GM TAB PO SCH ×2 (16:30→21:46)
--- NOTE | 2019-02-19 18:45 | NUR ---
NO CHANGES AT THIS TIME IN PT STATUS
[2019-02-19] MEDS ORDERED: PROPOFOL IV EMULSION 10 MG/ML 20 ML VIAL ONE (19:22)
[2019-02-19] MEDS ORDERED: LIDOCAINE HCL 2% LOCAL INJ 5 ML SDV VIAL INJ ONE (19:22)
--- NOTE | 2019-02-19 21:15 | NUR ---
PATIENT CONDITION STABLE WITHOUT ACUTE DISTRESS, ASSISTED WITH ADLS. CALL LIGHT WITHIN EASY REACH, PATIENT DENIES PAIN.
[2019-02-20] VITALS: BP 137/64
--- NOTE | 2019-02-20 00:34 | NUR ---
PATIENT INCONTINENT OF URINE, SHE'S KEPT CLEAN AND DRY. NO PAIN VOICED, SHE'S REPOSITION IN BED FOR COMFORT.
--- NOTE | 2019-02-20 03:07 | NUR ---
TEMPERATURE ASSESSED WITH READING OF 98.8, NO ACUTE DISTRESS OBSERVED AND PATIENT DENIES PAIN. BED ALARM ON, CALL LIGHT WITHIN EASY REACH.
[2019-02-20 04:00] VITALS: BP 156/69
[2019-02-20 05:57] LABS: BASOPHILS % 0.7 % (0.0-1.0); EOSINOPHILS # (AUTO) 0.1 (0.0-0.4); HEMATOCRIT 29.4 % (34.2-44.1); HEMOGLOBIN 9.6 g/dL (12.0-16.0); LYMPHOCYTES % 17.3 % (18.0-39.1); MEAN CORPUSCULAR HEMOGLOBIN 30.8 pg (28-32); MEAN CORPUSCULAR HGB CONC 32.7 g/dL (31-35); MEAN CORPUSCULAR VOLUME 94.2 fL (81-99); MONOCYTES # (AUTO) 0.9 (0.2-0.8); MONOCYTES % 15.9 % (4.4-11.3); NEUTROPHILS # (AUTO) 3.8 (2.1-6.9); NEUTROPHILS % 64.8 % (38.7-80.0); PLATELET COUNT 201 x10e3/uL (140-360); RED BLOOD COUNT 3.12 x10e6/uL (3.6-5.1); RED CELL DISTRIBUTION WIDTH 16.2 % (11.7-14.4)
[2019-02-20] MEDS: LEVOTHYROXINE SODIUM 88 MCG TAB PO SCH (06:12)
[2019-02-20] MEDS: AZTREONAM 1 GM/NS 50 ML 50 ML IV SCH (06:12)
[2019-02-20 06:15] LABS: ANION GAP 14.8 mmol/L (8-16); CALCIUM 8.3 mg/dL (8.4-10.2); CREATININE, SERUM 2.07 mg/dL (0.57-1.11); POTASSIUM 3.8 mmol/L (3.5-5.1)
[2019-02-20 06:31] LABS: CHOL/HDL RATIO 4.1 (3.0-3.6)
[2019-02-20 08:51] VITALS: BP 145/65
[2019-02-20] MEDS ORDERED: POTASSIUM CHLORIDE 10MEQ EA PO SCH (09:00)
[2019-02-20 10:25] VITALS: BP 145/65
[2019-02-20] MEDS: SENNA-S TABLET PO SCH (10:25)
[2019-02-20] MEDS: AMLODIPINE BESYLATE 5 MG TAB PO SCH (10:25)
[2019-02-20] MEDS: SUCRALFATE 1 GM TAB PO SCH (10:25)
[2019-02-20] MEDS: FERROUS SULFATE 325 MG TAB PO SCH (10:25)
[2019-02-20] MEDS: HYDRALAZINE HCL 10 MG TAB PO SCH (10:25)
[2019-02-20] MEDS: PANTOPRAZOLE SOD 40 MG TABEC PO SCH (10:25)
[2019-02-20] MEDS: DILTIAZEM HCL ER 120 MG CAP PO SCH (10:25)
[2019-02-20] MEDS: CITALOPRAM HYDROBROMIDE 20 MG TAB PO SCH (10:25)
[2019-02-20] MEDS: FUROSEMIDE INJ 10 MG/ML 4 ML VIAL IV SCH (10:25)
[2019-02-20] MEDS: CARVEDILOL 12.5 MG TAB PO SCH (10:25)
[2019-02-20] MEDS ORDERED: PANTOPRAZOLE SO40 MG PO (11:38)
[2019-02-20] MEDS ORDERED: LEVAQUIN500 MG PO (11:38)
[2019-02-20] MEDS ORDERED: NIFEDIPINE10 MG PO (11:38)
[2019-02-20] MEDS ORDERED: CARAFATE1 GM/10 ML PO (11:39)
--- NOTE | 2019-02-21 05:42 | Discharge Summary ---
PRIMARY CARE PHYSICIAN: Kalyan Rob MD RN PATIENT SERVICES: Ramo Singleton MD FINAL DIAGNOSES: 1. Acute on chronic blood loss anemia and chronic kidney disease stage 3. 2. Status post blood transfusion. 3. Status post EGD, found to have gastric ulcer bleeding. SUMMARY: The patient is an 84-year-old female came in with symptomatic anemia. The patient received blood transfusion. Hemoglobin and hematocrit were 7.6 and 24.5. The patient received 2 units blood transfusion. Hemoglobin and hematocrit now are 9.6 and 29.4. The patient is stable. No . She does have urinary tract infection with E. coli. The patient is stable. Her blood pressure remains adequately controlled. She underwent EGD, found to have a gastric ulcer. The patient now will return home. Avoid NSAIDs or aspirin. No blood thinner. The patient will take Carafate suspension a.c. and at bedtime, Protonix 40 mg daily. For her infection, she will take Levaquin 5 mg daily for seven days. Blood pressure controlled. The patient will take nifedipine ER 30 mg daily. DISCHARGE MEDICATIONS: Protonix 40 mg daily, Levaquin 500 mg daily for seven days. Nifedipine ER 30 mg daily. Carafate suspension 1 g q.a.c. and at bedtime. The patient is stable, discharged home today. Follow up with Dr. Rob in approximately one week. MD KEAGAN Banks/MODL /[id number]
== END 2019-02-20 12:10 | disposition home or self-care (01) | DRG 377 ==
LOC: IMCU 23:23 → OBSVTOIN 02-18 09:20 → MED/SURG 02-18 21:04
PROVIDERS: ADMIT Internal Medicine; ATTEND Internal Medicine
PROC: 30233N1 Transfusion of Nonautologous Red Blood Cells into Peripheral Vein, Percutaneous Approach (ICD-10-PCS; principal; 2019-02-18)
PROC: 0DB78ZX Excision of Stomach, Pylorus, Via Natural or Artificial Opening Endoscopic, Diagnostic (ICD-10-PCS; 2019-02-19)
DX: K25.4 Chronic or unspecified gastric ulcer with hemorrhage (principal); I50.21 Acute systolic (congestive) heart failure; D62 Acute posthemorrhagic anemia; I13.0 Hypertensive heart and chronic kidney disease with heart failure and stage 1 through stage 4 chronic kidney disease, or unspecified chronic kidney disease; N39.0 Urinary tract infection, site not specified; N18.3 Chronic kidney disease, stage 3 (moderate); B96.20 Unspecified Escherichia coli [E. coli] as the cause of diseases classified elsewhere; E03.9 Hypothyroidism, unspecified
CPT/HCPCS: 36415; 43239; 71045; 71250; 74176; 80048; 80053; 80061; 81001; 82607; 82728; 82746; 82784; 83036; 83516; 83540; 83880; 84443; 84466; 85014; 85018; 85025; 86256; 86850; 86900; 86920; 87086; 87186; 88304; 88305; 88312; 88313; 93005; 93306; 93880; 96367; G0378; J0171; J0456; J1940; J2001; J7050; P9016

== ENCOUNTER 2020-07-31 17:17 | Emergency (ER) | payer OTHER ==
[~2020-07-31] VITALS: Ht 154.9 cm; Wt 73.0 kg
[~2020-07-31 17:17] MED LIST: ALENDRONATE SOD70 MG PO; CARAFATE1 GM/10 ML PO; CARVEDILOL12.5 MG PO; CITALOPRAM HBR20 MG PO; DILTIAZEM HCL60 MG PO; FERROUS SULFAT325 MG PO; FUROSEMIDE40 MG PO; HYDRALAZINE HCL10 MG PO; LEVAQUIN500 MG PO; LEVOTHYROXINE88 MCG PO; NIFEDIPINE10 MG PO; PANTOPRAZOLE SO40 MG PO
--- NOTE | 2020-07-31 18:24 | Emergency Department Note ---
History of Present Illnes History of Present Illness Chief Complaint: Respiratory History of Present Illness This is a 85 year old female Chief Complaint Comment PATIENT IN FROM HOME WITH COMPLAINTS OF SHORTNESS OF BREATH ON EXERTION STARTING YESTERDAY; STATES SHE HAS BEEN ANEMIC BEFORE, AND FELT THE SAME WAY. PATIENT ALERT AND ORIENTED, RESP EVEN AND NONLABORED, APPEARS IN NO DISTRESS, DENIES PAIN, AMBULATORY WITH WALKER . Historian: Patient Arrival Mode: Car Onset (how long ago): day(s) (2) Location: SOB Radiation: Denies non-radiation, Denies back, Denies neck, Denies extremity, Denies abdomen, Denies periumbilical, Denies flank, Denies proximal, Denies distal, Denies other Severity: mild Onset quality: gradual Duration (how long): day(s) (2) Timing of current episode: constant Progression: unchanged Chronicity: new Context: Denies recent illness, Denies recent surgery, Denies recent immobilization, Denies recent travel, Denies trauma/injury, Denies new medications, Denies hx of DVT/PE, Denies non-compliance w/ medications, Denies other Relieving factors: none Exacerbating factors: none Treatments prior to arrival: none (RICCARDO LIPSCOMB MD) Past Medical/Family History Physician Review I have reviewed the patient's past medical and family history. Any updates have been documented here. (RICCARDO LIPSCOMB MD) Past Medical History Recent Fever: No Clinical Suspicion of Infectio: No New/Unexplained Change in Ment: No Past Medical History: Hypertension, Hypothyroidism, Anemia, Anxiety, Osteoarthritis (RICCARDO LIPSCOMB MD) Social History Smoking Cessation: Never Smoker Counseling Performed: No Alcohol Use: None Any Illegal Drug Use: No (RICCARDO LIPSCOMB MD) Other Any Pre-Existing Lines (PICC,: No (RICCARDO LIPSCOMB MD) Review of Systems Review of Systems Constitutional: Reports no symptoms EENTM: Reports no symptoms Cardiovascular: Reports no symptoms Respiratory: Reports as per HPI Gastrointestinal: Reports no symptoms Genitourinary: Reports no symptoms Musculoskeletal: Reports no symptoms Integumentary: Reports no symptoms Neurological: Reports no symptoms Psychological: Reports no symptoms Endocrine: Reports no symptoms Hematological/Lymphatic: Reports no symptoms (RICCARDO LIPSCOMB MD) Physical Exam Related Data Allergies: Coded Allergies: Penicillins (Verified Allergy, Unknown, 07/31/20) Triage Vital Signs Vital Signs Date Time Temp Pulse Resp B/P (MAP) Pulse Ox O2 Delivery O2 Flow Rate FiO2 07/31/20 17:31 98.2 67 22 113/44 98 Room Air Vital signs reviewed: Yes (RICCARDO LIPSCOMB MD) Physical Exam CONSTITUTIONAL Constitutional: Present well-developed, Present well-nourished HENT HENT: Present normocephalic, Present atraumatic, Present oropharynx neel r/moist, Present nose normal HENT L/R: Present left ext ear normal, Present right ext ear normal EYES Eyes: Reports PERRL, Reports conjunctivae normal NECK Neck: Present ROM normal PULMONARY Pulmonary: Present effort normal, Present rhonchi CARDIOVASCULAR Cardiovascular: Present regular rhythm, Present heart sounds normal, Present capillary refill normal, Present normal rate GASTROINTESTINAL Abdominal: Present soft, Present nontender, Present bowel sounds normal GENITOURINARY Genitourinary: Present exam deferred SKIN Skin: Present warm, Present dry MUSCULOSKELETAL Musculoskeletal: Present ROM normal NEUROLOGICAL Neurological: Present alert, Present oriented x 3, Present no gross motor or sensory deficits PSYCHOLOGICAL Psychological: Present mood/affect normal, Present judgement normal (RICCARDO LIPSCOMB MD) Assessment & Plan Medical Decision Making MDM Diff Dx : CHF, Anemia, ACS, PNA, URI, COVID-19 URI (RUBIO DE LA VEGA DO) Assessment & Plan Final Impression: (1) Pulmonary vascular congestion (RUBIO DE LA VEGA DO) Depart Disposition: HOME, SELF-CARE Last Vital Signs Date Time Temp Pulse Resp B/P (MAP) Pulse Ox O2 Delivery O2 Flow Rate FiO2 07/31/20 18:09 62 16 118/49 99 Room Air 07/31/20 17:31 98.2 (RICCARDO LIPSCOMB MD) Home Meds Reported Medications Sucralfate (CARAFATE) 1 Gm/10 Ml Oral.susp, 1 GM PO ACHS, ML 02/20/19 Nifedipine (NIFEDIPINE) 10 Mg Cap, 30 MG PO DAILY, #90 CAP 02/20/19 Levofloxacin (LEVAQUIN) 500 Mg Tablet, 500 MG PO DAILY, TAB 02/20/19 Pantoprazole Sodium* (PROTONIX) 40 Mg Tablet.dr, 40 MG PO DAILY@0600, TAB 02/20/19 Levothyroxine Sodium (LEVOTHYROXINE SODIUM) 88 Mcg Tablet, 88 MCG PO DAILY@0600, #30 TAB 02/18/19 Carvedilol (CARVEDILOL) 12.5 Mg Tablet, 12.5 MG PO BID, #60 TAB 02/18/19 Diltiazem Hcl (DILTIAZEM HCL) 60 Mg Tablet, 300 MG PO DAILY, #30 TAB 02/18/19 Ferrous Sulfate (FERROUS SULFATE) 325 Mg Tablet, 325 TAB PO 02/18/19 Hydralazine Hcl (HYDRALAZINE HCL) 10 Mg Tablet, 50 MG PO DAILY, #30 TAB 02/18/19 Citalopram Hydrobromide (CITALOPRAM HBR) 20 Mg Tablet, 20 MG PO DAILY, TAB 02/18/19 RICCARDO LIPSCOMB MD Jul 31, 2020 18:23 RUBIO DE LA VEGA DO Jul 31, 2020 20:47
[2020-07-31 18:33] LABS: BASOPHILS # (AUTO) 0.1 (0.0-0.1); BASOPHILS % 1.1 % (0.0-1.0); EOSINOPHILS # (AUTO) 0.4 (0.0-0.4); HEMATOCRIT 27.6 % (34.2-44.1); HEMOGLOBIN 8.9 g/dL (12.0-16.0); LYMPHOCYTES # (AUTO) 1.4 (1.0-3.2); LYMPHOCYTES % 16.4 % (18.0-39.1); MEAN CORPUSCULAR HEMOGLOBIN 31.6 pg (28-32); MEAN CORPUSCULAR HGB CONC 32.2 g/dL (31-35); MEAN CORPUSCULAR VOLUME 97.9 fL (81-99); MONOCYTES % 11.9 % (4.4-11.3); NEUTROPHILS # (AUTO) 5.4 (2.1-6.9); NEUTROPHILS % 65.2 % (38.7-80.0); PLATELET COUNT 241 x10e3/uL (140-360); RED BLOOD COUNT 2.82 x10e6/uL (3.6-5.1); RED CELL DISTRIBUTION WIDTH 11.8 % (11.7-14.4)
[2020-07-31 18:53] LABS: ALBUMIN 3.1 g/dL (3.5-5.0); ALBUMIN/GLOBULIN RATIO 0.7 (0.8-2.0); ANION GAP 21.6 mmol/L (8-16); CALCIUM 9.4 mg/dL (8.4-10.2); CREATININE, SERUM 4.07 mg/dL (0.57-1.11); POTASSIUM 3.6 mmol/L (3.5-5.1)
[2020-07-31 18:59] LABS: CREATINE KINASE MB 2.6 ng/mL (0-5.0)
--- NOTE | 2020-07-31 19:15 | Diagnostic Imaging Report ---
EXAMINATION: CHEST SINGLE (PORTABLE) INDICATION: Shortness of breath. COMPARISON: Multiple prior chest x-rays including most recent on 02/19/2019. FINDINGS: TUBES and LINES: None. LUNGS: Normal lung volumes. There are mildly prominent interstitial lung markings throughout both lungs. No focal consolidation. PLEURA: No pleural effusion or pneumothorax. HEART AND MEDIASTINUM: The cardiomediastinal silhouette is mildly enlarged. Atherosclerotic calcification of the thoracic aortic knob. BONES AND SOFT TISSUES: No acute osseous lesion. Soft tissues are unremarkable. UPPER ABDOMEN: No free air under the diaphragm. IMPRESSION: 1. Mild cardiomegaly with pulmonary vascular congestion. 2. Bibasilar atelectasis. No focal consolidation, pleural effusion or pneumothorax. Signed by: Jocelyn Dean MD on 07/31/2020 7:12 PM
--- OUTSIDE RECORDS SUMMARY | 2020-07-31 19:29 | XMS REPORT | Continuity of Care Document ---
Author Author [facility] t Organization [facility] Address [address] [place] [address] Phone Unavailable Care Team Providers Care Protection Agent Name Role Phone KALYAN ROB MD PCP RUBIO DE LA VEGA Attphys Unavailable KOKO DE LA VEGA Attphys Unavailable Lisa QUEEN Attphys Unavailable Jason Rob Attphys Marvel Serrano Attphys KOKO DE LA VEGA Admphys Unavailable Payers Payer Name Policy Type Policy Number Effective Date Expiration Date Fracisco Cantu [id number] 2018 00:00:00 [facility] Problems Condition Name Condition Details Condition Category Status Onset Date Resolution Date Last Treatment Date Treating Clinician Comments Source CHEST PAIN CHES T PAIN Active 02/24/2014 [facility] Active 2014-02-24 00:00:00 2014-02-25 02:19:00 Kole Mantilla Epidermoid cyst of skin (disorder) Epidermoid cyst of skin (disorder) Active 05/10/2008 Problem 02/19/2019 Data migrated from [employer] on 03/25/15. [facility] [place] Problem Active 2008-05-10 00:00:00 2019-02-19 01:28:00 Kole Mantilla Urgent desire to urinate (finding) Urgent desire to urinate (finding) Active 04/26/2008 Problem 02/19/2019 Data migrated from [employer] on 03/25/15. [facility] [place] Problem Active 2008-04-26 0 0:00:00 2019-02-19 01:28:00 [facility] Atelect[facility] Atel ectasis 05/05/2018 [place] [place] Problem 2018-05-05 16:36:52 [facility] Arthritis (disorder) Arth ritis (disorder) Active Problem 02/19/2019 Data migrated from [employer] on 03/25/15. [facility] [place] Problem Active 2019-02-19 01:28:00 Harsh Mantilla Benign hypertension (disorder) Benign hypertension (disorder) Active Problem 02/19/2019 Data migrated from [employer] on 03/25/15. [facility] [place] Problem Active 2019-02-19 01:28:00 [facility] Coronary arteriosclerosis (disorder) Coronary arteriosclerosis (disorder) Active Problem 02/19/2019 Data migrated from [employer] on 03/25/15. [facility] [place] Problem Active 2019-02-19 01: 28:00 [facility] Hypercholesterolemia (disorder) Hypercholesterolemia (disorder) Active Problem 02/19/2019 Data migrated from [employer] on 03/25/15. [facility] [place] Problem Active 2019-02-19 01:28:00 [facility] Hypothyroidism (disorder) Hypo thyroidism (disorder) Active Problem 02/19/2019 Data migrated from [employer] on 03/25/15. [facility] [place] Problem Active 2019-02-19 01:28:00 Andi Mantilla Obesity (disorder) Obes ity (disorder) Active Problem 02/19/2019 Data migrated from [employer] on 03/25/15. [facility] [place] Problem Active 2019-02-19 01:28:00 Harsh Mantilla Encounter for general adult medical examination with a bnormal findings Encounter for general adult medical examination with abnormal findings 02/04/2018 05/05/2018 [facility] [place] Problem 2 04:28:06 2018-05-05 16:36:52 2018-05-05 16:36:52 [facility] Discharge Diagnosis: Acute gastritis Discharge Diagnosis: Acute gastritis 02/25/2014 02/27/2014 [facility] Problem 2014-02-25 05:00:00 2014-02-27 23:17:03 2014-02-27 23:17:03 [facility] Allergies, Adverse Reactions, Alerts Allergy Name Allergy Type Status Severity Reaction(s) Onset Date Inacti ve Date Treating Clinician Comments Source Penicillin Allergy to Substance Active 2019-02-17 00:00:00 [facility] Penicillins DA Active SV 2011-06-19 00:00:00 [facility] prednisone DA Active SV 2011-06-19 00:00:00 [facility] erythromycin base DA Active CO 2011-06-19 00:00:00 [facility] penicillins<sup>1</sup> penicillins<sup>1</sup> Active 2004-06-23 00:00:00 [facility] erythromycin erythromycin Active 2004-06-23 00:00:00 [facility] penicillins penicillins Active 2004-06-23 00:00:00 [facility] macrolide antibiotics macrolide antibiotics Active [facility] Levaquin Levaquin Active Elias Marvin Social History Social Habit Start Date Stop Date Quantity Comments Source Social History 2019-02-17 04:59:00 2019-02-17 04:59:00 [facility] Medications Ordered Medication Name Filled Medication Name Start Date Stop Da te Current Medication? Ordering Clinician Indication Dosage Frequency Signature (SIG) Comments Components Source lansoprazole 30 MG Enteric Coated Capsule [Prevacid] 2 06:45:00 Yes 30 mg = 1 cap, PO, Daily, # 30 cap, 0 Re fill(s) [facility] Morphine 2014-02-25 06:43:00 No 1 mg, Route: IV, ONCE, Dosing Weight 80.909, kg, Start date: 02/25/14 1:43:00, Stop date: 02/25/14 1:43:00 [facility] Saline Flush 0.9% 2014-02-25 03:47:00 No Notes: (Same as: BD Posiflush) [facility] Carvedilol 12.5 Mg Tablet Carvedilol 12.5 Mg Tablet Yes 12.5 Twice A Day [facility] Citalopram Hydrobromide (Citalopram Hbr) 20 Mg Tablet Citalopram Hydrobromide (Citalopram Hbr) 20 Mg Tablet Yes 20 Daily [facility] Diltiazem Hcl 60 Mg Tablet Diltiazem Hcl 60 Mg Tablet Yes 300 Daily [facility] Ferrous Sulfate 325 Mg Tablet Ferrous Sulfate 325 Mg Tablet Ye s 325 [facility] Hydralazine Hcl 10 Mg Tablet Hydralazine Hcl 10 Mg Tablet Y es 50 Daily [facility] Levofloxacin (Levaquin) 500 Mg Tablet Levofloxacin (Levaquin) 500 M g Tablet Yes 500 Daily [facility] Levothyroxine Sodium 88 Mcg Tablet Levothyroxine Sodium 88 Mcg Tablet Yes 88 Daily@0600 [facility] Nifedipine 10 Mg Cap Nifedipine 10 Mg Cap Yes 30 Daily [facility] Pantoprazole Sodium (Protonix) 40 Mg Tablet. Pantopr azole Sodium (Protonix) 40 Mg Tablet. Yes 40 Daily@0600 C [facility] Sucralfate (Carafate) 1 Gm/10 Ml Oral.susp Sucralfate (Carafate) 1 Gm/10 Ml Oral.susp Yes 1 Before Meals And At Bedtime [facility] Alendronate Sodium 70 Mg Tablet, 70 Mg Oral Alendronat e Sodium 70 Mg Tablet, 70 Mg Oral 2019-02-20 00:00:00 No 70 Use As Directed [facility] Furosemide 40 Mg Tablet, 40 Mg Oral Furosemide 40 Mg Tablet, 40 Mg Oral 2019-02-20 00:00:00 No 40 Daily [facility] Vital Signs Vital Name Observation Time Observation Value Comments Source Respitory Rate 2014-02-25 07:32:00 Memjulian chris [place] Systolic (mm Hg) 2014-02-25 07:32:00 Andi toni [place] Diastolic (mm Hg) 2014-02-25 07:32:00 Mem addy Mantilla Temperature Oral (F) 2014-02-25 07:32:00 98.0 F [facility] Heart Rate 2014-02-25 07:32:00 [facility] [place] Systolic (mm Hg) 2014-02-25 04:25:00 Andi toni [facility] Respitory Rate 2014-02-25 04:25:00 Memjulian al [facility] Diastolic (mm Hg) 2014-02-25 04:25:00 Mem orial [facility] Heart Rate 2014-02-25 04:25:00 [facility] [place] Respitory Rate 2014-02-25 03:20:00 Memori al [place] Temperature Oral (F) 2014-02-25 03:20:00 97.9 F [facility] [place] Systolic (mm Hg) 2014-02-25 03:20:00 Andi muñoz [place] Diastolic (mm Hg) 2014-02-25 03:20:00 Mem orial [place] Heart Rate 2014-02-25 03:20:00 [facility] Procedures Procedure Date / Time Performed Performing Clinician Sourc e EGD with biopsy 2019-02-19 00:00:00 LINA BILLY [facility] CT of abdomen and pelvis without contrast 2019-02-18 00:00:00 KOKO PUTNAM [facility] Computed tomography of chest without contrast 2019-02-18 00:00:[address] [facility] X-ray of chest, two views 2019-02-17 00:00:00 GRACE QUEEN CH, I [facility] Encounters Start Date/Time End Date/Time Encounter Type Admission Type Attendi [email or web address] Care Department Encounter ID Source 2019-02-18 09:20:00 2019-02-20 12:10:00 Discharged Inpatient 1 KOKO DE LA VEGA [facility] [id number] [facility] 2019-02-17 18:25:00 2019-02-18 00:50:00 Departed Emergency Room 1 GRACE QUEEN [facility] [id number] [facility] 2019-02-16 10:53:00 2019-02-16 23:59:00 [facility] [id number] 2018-02-18 13:40:00 2018-02-18 23:59:00 [facility]an [facility] [id number] 2018-01-27 13:03:00 2018-01-27 23:59:00 Outpatient RobKalyan blanchard [facility] [id number] 2014-02-24 22:18:00 2014-02-25 02:34:00 Outpatient Alen Serrano IE [id number] Results Test Description Test Time Test Comments Results Result Comments Source CHEST SINGLE (PORTABLE) 2020-07-31 19:10:00 [facility] [address] [place] [address] Patient Name: JENI PETERSON MR #: [id number] : 1935 Age/Sex: 85/F Req #: [id number] Adm Physician: Ordered by: RICCARDO LIPSCOMB MD Report #: [id number] Location: ER Room/Bed: Procedure: [id number] DX/CHEST SINGLE (PORTABLE) Exam Date: 07/31/20 Exam Time: 1838 REPORT STATUS: Signed EXAMINATION: CHEST SINGLE (PORTABLE) INDICATION: Shortness of breath. COMPARISON: Multiple prior chest x-rays including most recent on 02/19/2019. FINDINGS: TUBES and LINES: None. LUNGS: Normal lung volumes. There are mildly prominent interstitial lung markings throughout both lungs. No focal consolidation. PLEURA: No pleural effusion or pneumothorax. HEART AND MEDIASTINUM: The cardiomediastinal silhouette is mildly enlarged. Atherosclerotic calcification of the thoracic aortic knob. BONES AND SOFT TISSUES: No acute osseous lesion. Soft tissues are unremarkable. UPPER ABDOMEN: No free air under the diaphragm. IMPRESSION: 1. Mild cardiomegaly with pulmonary vascular congestion. 2. Bibasilar atelectasis. No focal consolidation, pleural effusion or pneumothorax. Signed by: Valente Greenfield MD on 07/31/2020 7:12 PM Dictated By: VALENTE GREENFIELD MD 11 Transcribed By: HERMAN on 07/31/201911 COPY TO: RICCARDO LIPSCOMB MD Urine Culture 2019-02-20 09:39:00 Test Item Urine Culture (test code = 630-4) Organism: ESCHERICHIA FERGUSONII [facility]ig[facility] [id number] 06:31:00* Test Item Value Reference Range Interpretation Comments Triglycerides Level (test code = 2571-8) 107 0-149 [facility]olesterol [id number] 06:31:00* Test Item Value Reference Range Interpretation Comments Cholesterol Level (test code = 2093-3) 153 0-199 Less than 200 mg/dL Low Qolv232 - 239 mg/dL Borderline Xqvq032 m g/dl and greater High Risk [facility]viewLDL Unxxtbqppql0117-09-89 06:31:00* Test Item Value Reference Range Interpretation Comments LDL Cholesterol (test code = 2089-1) 95 60-130 [facility]viewHDL Xjroreroynr5079-42-30 06:31:00* Test Item Value Reference Range Interpretation Comments HDL Cholesterol (test code = 2085-9) 37 40-60 L [facility]Cholesterol/HDL Jfqdn4145-35-51 06:31:00 * Test Item Value Reference Range Interpretation Comments Cholesterol/HDL Ratio (test code = 9830-1) 4.1 3.0-3.6 [facility] Fgtyd1453-53-33 06:23:00* Test Item Value Reference Range Interpretation Comments Sodium Level (test code = 2951-2) 136 136-145 [facility]viewPotassium Hlpaq7573-28-30 06:23:00* Test Item Value Reference Range Interpretation Comments Potassium Level (test code = 2823-3) 3.8 3.5-5.1 [facility]Chloride Bqvtu9851-42-12 06:23:00* Test Item Value Reference Range Interpretation Comments Chloride Level (test code = 2075-0) 108 98-107 H [facility]viewCarbon Dioxide Lcfnd3377-20-86 06:23:00* Test Item Value Reference Range Interpretation Comments Carbon Dioxide Level (test code = 2028-9) 17 22-29 L [facility] LongviewAnion Mmt2586-15-73 06:23:00* Test Item Value Reference Range Interpretation Comments Anion Gap (test code = 57044-3) 14.8 8-16 [facility]viewBlood Urea Vzvalhad4370-63-33 06:23:00* Test Item Value Reference Range Interpretation Comments Blood Urea Nitrogen (test code = 3094-0) 36 7-26 H [facility]viewCreatinine2019-04-27 06:23:00* Test Item Value Reference Range Interpretation Comments Creatinine (test code = 2160-0) 2.07 0.57-1.11 H [facility]viewBUN/Creatinine Sfkid2558-86-38 06:23:00* Test Item Value Reference Range Interpretation Comments BUN/Creatinine Ratio (test code = 3097-3) 17 6-25 [facility] LongviewEstimat Glomerular Filtration Rate 2019-02-20 06:23:00* Test Item Value Reference Range Interpretation Comments Estimat Glomerular Filtration Rate (test code = 018033199) 23 >60 L Ranges were taken from the National Kidney Disease Education Program and the [facility] Kidney Foundation literature.Reference ranges:60 or greater: Bcefzx76-78 ( for 3 consecutive months): Chronic kidney disease 15 or less: Kidney failureCHRISTUS [facility] – LongviewGlucose Zmkbh4859-94-92 06:23:00* Test Item Value Reference Range Interpretation Comments Glucose Level (test code = BOH1247) 89 74-118 [facility]viewCalcium Yxbjn6202-92-30 06:23:00* Test Item Value Reference Range Interpretation Comments Calcium Level (test code = 09153-9) 8.3 8.4-10.2 L [facility] LongviewWhite Blood Umunr4766-09-20 06:01:00* Test Item Value Reference Range Interpretation Comments White Blood Count (test code = 6690-2) 5.84 4.8-10.8 [facility] LongviewRed Blood Ainvl7610-66-51 06:01:00* Test Item Value Reference Range Interpretation Comments Red Blood Count (test code = 789-8) 3.12 3.6-5.1 L [facility]viewHemoglobin2019-04-27 06:01:00* Test Item Value Reference Range Interpretation Comments Hemoglobin (test code = 05582-8) 9.6 12.0-16.0 L [facility]viewHematocrit2019-04-27 06:01:00* Test Item Value Reference Range Interpretation Comments Hematocrit (test code = 4544-3) 29.4 34.2-44.1 L [facility] LongviewMean Corpuscular Wdjviu6506-47-73 06:01:00* Test Item Value Reference Range Interpretation Comments Mean Corpuscular Volume (test code = 787-2) 94.2 81-99 [facility]viewMean Corpuscular Lzpfgabitl6467-33-43 06:01:00* Test Item Value Reference Range Interpretation Comments Mean Corpuscular Hemoglobin (test code = 785-6) 30.8 28-32 [facility] LongviewMean Corpuscular Hemoglobin Concent 2019-02-20 06:01:00* Test Item Value Reference Range Interpretation Comments Mean Corpuscular Hemoglobin Concent (test code = 786-4) 32.7 31-35 [facility]viewRed Cell Distribution Wrpny8903-20-51 06:01:00* Test Item Value Reference Range Interpretation Comments Red Cell Distribution Width (test code = 95823-0) 16.2 11.7 -14.4 H [facility] LongviewPlatelet Bnutw1504-48-35 06:01:00* Test Item Value Reference Range Interpretation Comments Platelet Count (test code = 777-3) 201 140-360 [facility]viewNeutrophils (%) (Auto)2019-02-20 06:01:00 * Test Item Value Reference Range Interpretation Comments Neutrophils (%) (Auto) (test code = 36867-7) 64.8 38.7-80.0 [facility]viewLymphocytes (%) (Auto)2019-02-20 06:01:00 * Test Item Value Reference Range Interpretation Comments Lymphocytes (%) (Auto) (test code = 736-9) 17.3 18.0-39.1 L [facility]viewMonocytes (%) (Auto)2019-02-20 06:01:00* Test Item Value Reference Range Interpretation Comments Monocytes (%) (Auto) (test code = 5905-5) 15.9 4.4-11.3 H [facility]viewEosinophils (%) (Auto)2019-02-20 06:01:00 * Test Item Value Reference Range Interpretation Comments Eosinophils (%) (Auto) (test code = 713-8) 1.0 0.0-6.0 [facility]viewBasophils (%) (Auto)2019-02-20 06:01:00* Test Item Value Reference Range Interpretation Comments Basophils (%) (Auto) (test code = 706-2) 0.7 0.0-1.0 [facility]viewIM GRANULOCYTES %2019-02-20 06:01:00* Test Item Value Reference Range Interpretation Comments IM GRANULOCYTES % (test code = IM GRANULOCYTES %) 0.3 0.0- 1.0 [facility]viewNeutrophils # (Auto)2019-02-20 06:01:00* Test Item Value Reference Range Interpretation Comments Neutrophils # (Auto) (test code = 751-8) 3.8 2.1-6.9 [facility]viewLymphocytes # (Auto)2019-02-20 06:01:00* Test Item Value Reference Range Interpretation Comments Lymphocytes # (Auto) (test code = 74936-5) 1.0 1.0-3.2 [facility]viewMonocytes # (Auto)2019-02-20 06:01:00* Test Item Value Reference Range Interpretation Comments Monocytes # (Auto) (test code = 742-7) 0.9 0.2-0.8 H [facility]viewEosinophils # (Auto)2019-02-20 06:01:00* Test Item Value Reference Range Interpretation Comments Eosinophils # (Auto) (test code = 711-2) 0.1 0.0-0.4 [facility]viewBasophils # (Auto)2019-02-20 06:01:00* Test Item Value Reference Range Interpretation Comments Basophils # (Auto) (test code = 704-7) 0.0 0.0-0.1 [facility] LongviewAbsolute Immature Granulocyte (auto 2019-02-20 06:01:00* Test Item Value Reference Range Interpretation Comments Absolute Immature Granulocyte (auto (vikki t code = Absolute Immature Granulocyte (auto) 0.02 0-0.1 [facility]viewHemoglobin A1c Hznhjef1711-65-28 07:14:00 * Test Item Value Reference Range Interpretation Comments Hemoglobin A1c Percent (test code = Hemoglobin A1c Percent) 5.0 4.0-7.0 [facility]viewCHEST SINGLE (PORTABLE)2019-02-19 06:07:00 [facility] [address] [place] [address] Patient Name: JENI PETERSON MR #: [id number] : 1935 Age/Sex: 84/F Req #: [id number] Adm Physician: KOKO DE LA VEGA MD Ordered by: SEBAS JUAREZ MD Report #: [id number] Location: MED/SURG Room/Bed: [facility] Procedure: [id number] D X/CHEST SINGLE (PORTABLE) Exam Date: Exam Time: REPORT STATUS: Signed EXAMINATION: CHEST SINGLE (PORTABLE) INDICATION: Shortness of breath COMPARIS ON: 02/17/2019. FINDINGS: TUBES and LINES: None. LUNGS: Lungs are adequately inflated. Bibasilar atelectasis. There is mild prominence o f the central pulmonary vasculature, consistent with pulmonary venous congesti on has decreased since the prior exam. PLEURA: Trace pleural effusion bila terally. No pneumothorax. HEART AND MEDIASTINUM: Cardiac size is moderatel y enlarged. There are atherosclerotic calcifications of the aorta. BONES AND SOFT TISSUES: There are degenerative changes in the thoracic spine. Soft tissues are unremarkable. UPPER ABDOMEN: No free air under the diaphragm. IMPRESSION: Interval decrease in decrease bilateral pulmonary venous congestion. Signed by: Dr. Den Gray M.D. on 02/19/2019 6:09 AM Dictated By: GREG GRAY MD, MD 8 Transcribed By: HERMAN on 02/19/19608 COPY TO: SEBAS JUAREZ MD Ncmfqwun5428-33-60 22:13:00* Test Item Value Reference Range Interpretation Comments Ferritin (test code = 2276-4) 76.12 4.63-204.00 [facility] LongviewUrine [id number] 18:40:00* Test Item Value Reference Range Interpretation Comments Urine WBC (test code = 5821-4) >50 0-5 H [facility] LongviewUrine [id number] 18:40:00* Test Item Value Reference Range Interpretation Comments Urine RBC (test code = 17393-8) 6-10 0-5 H [facility]viewUrine Ppntnqyj4466-10-16 18:40:00* Test Item Value Reference Range Interpretation Comments Urine Bacteria (test code = 98839-4) MANY NONE H [facility] LongviewUrine Epithelial Mohip5077-76-52 18:40:00 * Test Item Value Reference Range Interpretation Comments Urine Epithelial Cells (test code = 44493-8) NONE NONE [facility]viewUrine Pxhic0440-24-86 18:29:00* Test Item Value Reference Range Interpretation Comments Urine Color (test code = 5778-6) YELLOW YELLOW [facility]viewUrine Zctgtqz5556-61-19 18:29:00* Test Item Value Reference Range Interpretation Comments Urine Clarity (test code = 15045-9) CLOUDY CLEAR H [facility] LongviewUrine Specific Mlnibxo9094-47-24 18:29:00 * Test Item Value Reference Range Interpretation Comments Urine Specific [place] (test code = 5811-5) 1.010 1.010-1.02 5 [facility]viewUrine [id number] 18:29:00* Test Item Value Reference Range Interpretation Comments Urine pH (test code = 87908-5) 6 5-7 [facility]view[facility] Leukocyte Mkcnqfmy0227-81-23 18:29:00* Test Item Value Reference Range Interpretation Comments Urine Leukocyte Esterase (test code = 5799-2) 2+ NEGATIVE H [facility]viewUrine Lpzifcz7978-43-39 18:29:00* Test Item Value Reference Range Interpretation Comments Urine Nitrite (test code = 08289-1) POSITIVE NEGATIVE H [facility] LongviewUrine Ttioyrh1570-27-48 18:29:00* Test Item Value Reference Range Interpretation Comments Urine Protein (test code = 5804-0) NEGATIVE NEGATIVE [facility]viewUrine Glucose (UA)2019-02-18 18:29:00* Test Item Value Reference Range Interpretation Comments Urine Glucose (UA) (test code = 2349-9) NEGATIVE NEGATIVE [facility]viewUrine Zoyzeed1913-06-17 18:29:00* Test Item Value Reference Range Interpretation Comments Urine Ketones (test code = 76047-2) NEGATIVE NEGATIVE [facility]viewUrine Zndyzfjpqymo1724-46-91 18:29:00* Test Item Value Reference Range Interpretation Comments Urine Urobilinogen (test code = 91436-4) 0.2 0.2-1 [facility]viewU[facility] Qsccrlqes3106-65-37 18:29:00* Test Item Value Reference Range Interpretation Comments Urine Bilirubin (test code = 1978-6) NEGATIVE NEGATIVE [facility]viewU[facility] Ucofv2727-41-56 18:29:00* Test Item Value Reference Range Interpretation Comments Urine Blood (test code = 67514-1) TRACE NEGATIVE H [facility] LongviewB-Type Natriuretic Snzwrzz6512-96-25 14:19:00* Test Item Value Reference Range Interpretation Comments B-Type Natriuretic Peptide (test code = 81222-2) 1076.3 0-100 H [facility] LongviewVitamin B12 Gweku9734-40-43 12:06:00* Test Item Value Reference Range Interpretation Comments Vitamin B12 Level (test code = 78600-6) 734 213810 [facility] LongviewFolate2019-04-25 12:06:00* Test Item Value Reference Range Interpretation Comments Folate (test code = 2284-8) 17.1 7.0-15.4 H [facility] LongviewThyroid Stimulating Hormone (TSH) 2019-02-18 11:49:00* Test Item Value Reference Range Interpretation Comments Thyroid Stimulating Hormone (TSH) (test code = 87290-5) 11.822 0.350-4.940 H [facility] LongviewCT ABDOMEN/PELVIS [id number] 11:18:00 [facility] [address] [place] [address] Patient Name: JENI PETERSON MR #: [id number] : [birth year] Age/Sex: 84/F Req #: [id number] Adm Physician: KOKO DE LA VEGA MD Ordered by: KOKO DE LA VEGA MD Report #: [id number] Location: [facility] Room/Bed: [place] [address] Procedure: [id number] CT/CT ABDOMEN/PELVIS WO Exam Date: Exam Time: REPORT STATUS: Signed TECHNIQUE: CT of the chest, abdomen and pelvis without intravenous contrast. INDICATION: Short ness of breath, anemia. COMPARISON: Chest radiograph 02/17/2019. TECHNI QUE: The chest, abdomen and pelvis were scanned utilizing a multidetector omar hien scanner from the thoracic inlet to the pubic symphysis without administrat ion of IV or oral contrast. Coronal and sagittal reformations were obtained. R outine protocol was performed. Lack of intravenous contrast limits sensitivity for evaluation of vascular or visceral structures. COMPLICATIONS: None RADIATION DOSE: Total DLP: 744.6 mGy*cm Dose modulation, iterativ e reconstruction, and/or weight based adjustment of the mA/kV was utilized to reduce the radiation dose to as low as reasonably achievable. FINDINGS: LINES AND TUBES: None LUNGS AND AIRWAYS/PLEURA: The central airways are patent. There is moderate centrilobular apical predominant emphysematous isaac es of the lungs. There is a small right and a trace left pleural effusion. Th ere is smooth lower lobe predominant interlobular septal thickening with mild patchy groundglass opacities, for example on series 4, image 91. Mild patchy c onsolidative opacity in the right greater than left lower lobes. Scattered tin y nodular opacities, for example a 4 mm groundglass nodular opacity in the lef t upper lobe on image 32. There is a 4 mm subpleural solid nodule in the right upper lobe on image 33. There is a groundglass opacity in the right upper lob e on image 52. HEART AND MEDIASTINUM: The thyroid gland is normal. There ar e enlarged mediastinal lymph nodes, for example a 1.5 cm right paratracheal ly mph node with fatty hilum on series 2, image 22, and AP window lymph node kellie uring up to 1.1 cm on image 22. There is a 1.9 cm subcarinal lymph node on amy ge 28. Mild cardiomegaly. No pericardial effusion. Coronary and aortic atheros clerotic calcifications. There are mitral annular calcifications. HEPATOB ILIARY: Indeterminate 1.9 cm hypodensity in the right hepatic lobe on series 2 , image 57. Subcentimeter right hepatic lobe hypodensity is too small to josé miguel cterize, but likely represents a cyst. No biliary ductal dilatation. SPLEEN: N o splenomegaly. PANCREAS: No focal masses or ductal dilatation. ADRENALS: No adrenal nodules. KIDNEYS/URETERS: Atrophic left kidney. No evidence of hydronephrosis. There is a 4 mm calcification which may be vascular or a right mid pole calyceal stone on series 2, image 67. Is an additional 3 mm left mid pole calcification which may be vascular or calyceal. PELVIC ORGANS/BLADDER : Unremarkable. PERITONEUM / RETROPERITONEUM: No free air or fluid. LYMPH NODES: No lymphadenopathy. VESSELS: Extensive atherosclerotic calcifications of the abdominal aorta and branch vessels. There is a right common iliac arter ial stent. Limited evaluation of vasculature in the absence of IV contrast. GI TRACT: No distention or wall thickening. There is colonic diverticulosis without CT evidence of diverticulitis. The appendix is not well-visualized. BONES AND SOFT TISSUES: Asymmetric severe degenerative changes of the right h ip with subchondral sclerosis, mgzl-at-jqia contact, subchondral cystic change . IMPRESSION: Moderate emphysematous changes of the lungs with small ri ght and trace left pleural effusions and patchy opacities in the lower lobes, likely atelectasis. Multifocal groundglass opacities with smooth interlobular septal thickening, likely representing pulmonary edema. Mildly enlarged media stinal lymph nodes are likely reactive. Superimposed aspiration or early pneum onia is possible in the appropriate clinical setting. Follow-up chest CT is hyde ggested in 3 months to assess for resolution. Scattered bilateral solid a nd groundglass nodular opacities measuring up to 4 mm, which may be infectious or inflammatory. These can be evaluated on follow-up chest CT. No acute CT findings in the abdomen or pelvis. Possible nonobstructive bilateral renal stones versus vascular calcifications as above. Signed by: Dr. Nacho Joseph MD on 02/18/2019 11:41 AM Dictated By: NACHO JOSEPH MD Electronically Ellie d By: NACHO JOSEPH MD on 02/18/19 1141 Transcribed By: HERMAN on 02/18/19 1141 COPY TO: KOKO DE LA VEGA MD CT CHEST [id number] 11:18:00 [place] [address] Patient Name: JENI PETERSON MR #: [id number] : 1935 Age/Sex: 84/F Req #: [id number] Adm Physician: KOKO DE LA VEGA MD Ordered by: KOKO DE LA VEGA MD Report #: [id number] Location: [facility] Room/Bed: [place] [address] Procedure: [id number] CT/CT CHEST WO Exam Date: Exam Time: REPORT STATUS: Signed TECHNIQUE: CT of the chest, a bdomen and pelvis without intravenous contrast. INDICATION: Shortness of b reath, anemia. COMPARISON: Chest radiograph 02/17/2019. TECHNIQUE: The chest, abdomen and pelvis were scanned utilizing a multidetector helical scann er from the thoracic inlet to the pubic symphysis without administration of IV or oral contrast. Coronal and sagittal reformations were obtained. Routine pr otocol was performed. Lack of intravenous contrast limits sensitivity for eval uation of vascular or visceral structures. COMPLICATIONS: None RADIAT ION DOSE: Total DLP: 744.6 mGy*cm Dose modulation, iterative reconst ruction, and/or weight based adjustment of the mA/kV was utilized to reduce th e radiation dose to as low as reasonably achievable. FINDINGS: LINES A ND TUBES: None LUNGS AND AIRWAYS/PLEURA: The central airways are patent. T here is moderate centrilobular apical predominant emphysematous changes of the lungs. There is a small right and a trace left pleural effusion. There is sm ooth lower lobe predominant interlobular septal thickening with mild patchy gr oundglass opacities, for example on series 4, image 91. Mild patchy consolidat kathleen opacity in the right greater than left lower lobes. Scattered tiny nodular opacities, for example a 4 mm groundglass nodular opacity in the left upper l obe on image 32. There is a 4 mm subpleural solid nodule in the right upper lo be on image 33. There is a groundglass opacity in the right upper lobe on imag e 52. HEART AND MEDIASTINUM: The thyroid gland is normal. There are enlarge d mediastinal lymph nodes, for example a 1.5 cm right paratracheal lymph node with fatty hilum on series 2, image 22, and AP window lymph node measuring up to 1.1 cm on image 22. There is a 1.9 cm subcarinal lymph node on image 28. Mild cardiomegaly. No pericardial effusion. Coronary and aortic atherosclerotic calcifications. There are mitral annular calcifications. HEPATOBILIARY: I ndeterminate 1.9 cm hypodensity in the right hepatic lobe on series 2, image 5 7. Subcentimeter right hepatic lobe hypodensity is too small to characterize, but likely represents a cyst. No biliary ductal dilatation. SPLEEN: No splenom egaly. PANCREAS: No focal masses or ductal dilatation. ADRENALS: No adren al nodules. KIDNEYS/URETERS: Atrophic left kidney. No evidence of hydroneph rosis. There is a 4 mm calcification which may be vascular or a right mid pole calyceal stone on series 2, image 67. Is an additional 3 mm left mid pole hien cification which may be vascular or calyceal. PELVIC ORGANS/BLADDER: Unremar kable. PERITONEUM / RETROPERITONEUM: No free air or fluid. LYMPH NODES: N o lymphadenopathy. VESSELS: Extensive atherosclerotic calcifications of the ab dominal aorta and branch vessels. There is a right common iliac arterial stent . Limited evaluation of vasculature in the absence of IV contrast. GI TRA CT: No distention or wall thickening. There is colonic diverticulosis without CT evidence of diverticulitis. The appendix is not well-visualized. BONES AND SOFT TISSUES: Asymmetric severe degenerative changes of the right hip with subchondral sclerosis, pkrd-la-jmdd contact, subchondral cystic change. I MPRESSION: Moderate emphysematous changes of the lungs with small right and t race left pleural effusions and patchy opacities in the lower lobes, likely at electasis. Multifocal groundglass opacities with smooth interlobular septal t hickening, likely representing pulmonary edema. Mildly enlarged mediastinal ly mph nodes are likely reactive. Superimposed aspiration or early pneumonia is p ossible in the appropriate clinical setting. Follow-up chest CT is suggested i n 3 months to assess for resolution. Scattered bilateral solid and ground glass nodular opacities measuring up to 4 mm, which may be infectious or infla mmatory. These can be evaluated on follow-up chest CT. No acute CT findin gs in the abdomen or pelvis. Possible nonobstructive bilateral renal stones ve rsus vascular calcifications as above. Signed by: Dr. Nacho Joseph MD on 01/26 11:41 AM Dictated By: NACHO JOSEPH MD 1141 Transcribed By: HERMAN on 02/18/19 1141 COPY TO: KOKO DE LA VEGA MD Iron Aabsl2055-76-02 11:05:00* Test Item Value Reference Range Interpretation Comments Iron Level (test code = 2498-4) 29 50-170 L [facility] Iron Binding Xexnqgsp3775-11-66 11:05:00* Test Item Value Reference Range Interpretation Comments Total Iron Binding Capacity (test code = 2500-7) 393 261-4 78 [facility] LongviewPercent Iron Ziexulydje2452-42-38 11:05:00* Test Item Value Reference Range Interpretation Comments Percent Iron Saturation (test code = 2502-3) 7 15-50 L [facility] LongviewTransferrin2019-04-25 11:05:00* Test Item Value Reference Range Interpretation Comments Transferrin (test code = 3034-6) 281 180-382 [facility] Kofeaodax2228-36-50 02:29:00* Test Item Value Reference Range Interpretation Comments Total Bilirubin (test code = 1975-2) 0.6 0.2-1.2 [facility] LongviewAspartate Amino Transf (AST/SGOT) 2019-02-18 02:29:00* Test Item Value Reference Range Interpretation Comments Aspartate Amino Transf (AST/SGOT) (test code = Aspartate Amino Transf (AST/SGOT)) 17 5-34 [facility] LongviewAlanine Aminotransferase (ALT/SGPT) 2019-02-18 02:29:00* Test Item Value Reference Range Interpretation Comments Alanine Aminotransferase (ALT/SGPT) (test code = 1742-6) 10 0-55 [facility]viewTotal Adcxswt5191-41-54 02:29:00* Test Item Value Reference Range Interpretation Comments Total Protein (test code = 2885-2) 6.5 6.5-8.1 [facility] LongviewAlbumin2019-04-25 02:29:00* Test Item Value Reference Range Interpretation Comments Albumin (test code = 1751-7) 3.1 3.5-5.0 L [facility] LongviewGlobulin2019-04-25 02:29:00* Test Item Value Reference Range Interpretation Comments Globulin (test code = 95498-5) 3.4 2.3-3.5 [facility]viewAlbumin/Globulin Hiitm1721-72-20 02:29:00 * Test Item Value Reference Range Interpretation Comments Albumin/Globulin Ratio (test code = 1759-0) 0.9 0.8-2.0 [facility]viewAlkaline Rtlmqplgpak7369-32-92 02:29:00* Test Item Value Reference Range Interpretation Comments Alkaline Phosphatase (test code = 6768-6) 70 40-150 [facility] LongviewUrine Ymrbs2705-22-20 00:50:00* Test Item Value Reference Range Interpretation Comments Urine Color (test code = 5778-6) YELLOW YELLOW [facility] LongviewUrine Kjipdua5070-60-78 00:50:00* Test Item Value Reference Range Interpretation Comments Urine Clarity (test code = 15630-7) CLOUDY CLEAR H [facility] LongviewUrine Specific Dsqoznn7348-09-90 00:50:00 * Test Item Value Reference Range Interpretation Comments Urine Specific [place] (test code = 5811-5) 1.010 1.010-1.02 5 [facility] LongviewUrine aM9811-26-08 00:50:00* Test Item Value Reference Range Interpretation Comments Urine pH (test code = 02394-6) 5 5-7 [facility]viewUrine Leukocyte Hegzvfqh4158-99-41 00:50:00* Test Item Value Reference Range Interpretation Comments Urine Leukocyte Esterase (test code = 5799-2) 2+ NEGATIVE H [facility] LongviewUrine Qbhhksj7391-77-39 00:50:00* Test Item Value Reference Range Interpretation Comments Urine Nitrite (test code = 38524-9) POSITIVE NEGATIVE H [facility] LongviewUrine Jaigaes8837-33-67 00:50:00* Test Item Value Reference Range Interpretation Comments Urine Protein (test code = 5804-0) NEGATIVE NEGATIVE [facility] LongviewUrine Glucose (UA)2019-02-18 00:50:00* Test Item Value Reference Range Interpretation Comments Urine Glucose (UA) (test code = 2349-9) NEGATIVE NEGATIVE [facility]viewUrine Kuvprxz5615-73-85 00:50:00* Test Item Value Reference Range Interpretation Comments Urine Ketones (test code = 67397-1) NEGATIVE NEGATIVE [facility]viewUrine Ikqahuvxgchh9193-30-07 00:50:00* Test Item Value Reference Range Interpretation Comments Urine Urobilinogen (test code = 84160-7) 0.2 0.2-1 [facility]viewUrine Tzsowfzvy5297-93-50 00:50:00* Test Item Value Reference Range Interpretation Comments Urine Bilirubin (test code = 1978-6) NEGATIVE NEGATIVE [facility]viewUrine Uzqqd4633-59-86 00:50:00* Test Item Value Reference Range Interpretation Comments Urine Blood (test code = 72466-3) NEGATIVE NEGATIVE [facility]viewCHEST 2 XQXQO4941-89-70 21:57:00 [facility] [address] [place] [address] Patient Name: JENI PETERSON MR #: [id number] : 1935 Age/Sex: 84/F Req #: [id number] Adm Physician: Ordered by: GRACE QUEEN MD Report #: [id number] Location: ER Room/Bed: Procedure: [id number] DX/ CHEST 2 VIEWS Exam Date: 02/17/19 Exam Time: 1919 REPORT STATUS: Signed EXAMINATION: CHEST 2 VIEWS INDICATION: Shortness of breath COMPARISON: None FINDINGS: TUBES and LINES: None. LUNGS: Lungs are well inflat ed. Bibasilar atelectasis. There is mild prominence of the central pulmonar y vasculature, consistent with pulmonary venous congestion. PLEURA: Trac e pleural effusion bilaterally. No pneumothorax. HEART AND MEDIASTINUM: Ca rdiac size is moderately enlarged. There are atherosclerotic calcifications wi thin the aorta. BONES AND SOFT TISSUES: There are degenerative changes in the thoracic spine. UPPER ABDOMEN: No free air under the diaphragm. IMPRESSION: Findings suggestive of decompensated CHF with bilateral pulmonary venous congestion. Signed by: Dr. Den Gray M.D. on 02/17/2019 9:58 PM Dictated By: GREG GRAY MD, MD Electronically S igned By: GREG GRAY MD, MD on 02/17/192157 Transcribed By: HERMAN on 01/26 COPY TO: GRACE QUEEN MD B-Type Natriuretic Peptide 2019-02-17 19:52:00* Test Item Value Reference Range Interpretation Comments B-Type Natriuretic Peptide (test code = 65573-8) 941.1 0-100 H [facility]viewCreatine Kinase [id number] 19:46:00* Test Item Value Reference Range Interpretation Comments Creatine Kinase MB (test code = 56204-7) 1.40 0-5.0 [facility] LongviewTrJacob [place] [id number] 19:46:00* Test Item Value Reference Range Interpretation Comments Troponin I (test code = FZO3958) 0.001 0-0.300 [facility] LongviewCreatine Kinase [id number] 19:46:00* Test Item Value Reference Range Interpretation Comments Creatine Kinase MB (test code = 50338-6) 1.40 0-5.0 [place] 13810019-04-24 19:46:00* Test Item Value Reference Range Interpretation Comments Troponin I (test code = ARN9909) 0.001 0-0.300 [facility]aleodium Ladra6994-66-13 19:37:00* Test Item Value Reference Range Interpretation Comments Sodium Level (test code = 2951-2) 135 136-145 L [facility] LongviewPotassium Eabyk3996-72-10 19:37:00* Test Item Value Reference Range Interpretation Comments Potassium Level (test code = 2823-3) 4.5 3.5-5.1 [facility] LongviewChloride Wgvyg7592-85-92 19:37:00* Test Item Value Reference Range Interpretation Comments Chloride Level (test code = 2075-0) 110 98-107 H [facility] LongviewCarbon Dioxide Wrzrc9508-81-17 19:37:00* Test Item Value Reference Range Interpretation Comments Carbon Dioxide Level (test code = 2028-9) 14 22-29 L [facility] LongviewAnion Jut1687-51-12 19:37:00* Test Item Value Reference Range Interpretation Comments Anion Gap (test code = 36517-7) 15.5 8-16 [facility] LongviewBlood Urea Xvwkjgit9605-22-06 19:37:00* Test Item Value Reference Range Interpretation Comments Blood Urea Nitrogen (test code = 3094-0) 40 7-26 H [facility] LongviewCreatinine2019-04-24 19:37:00* Test Item Value Reference Range Interpretation Comments Creatinine (test code = 2160-0) 2.16 0.57-1.11 H [facility] LongviewBUN/Creatinine Yixtj5345-64-99 19:37:00* Test Item Value Reference Range Interpretation Comments BUN/Creatinine Ratio (test code = 3097-3) 19 6-25 [facility] LongviewEstimat Glomerular Filtration Rate 2019-02-17 19:37:00* Test Item Value Reference Range Interpretation Comments Estimat Glomerular Filtration Rate (test code = 394902601) 22 >60 L Ranges were taken from the National Kidney Disease Education Program and the [facility] Kidney Foundation literature.Reference ranges:60 or greater: Kjoxxs89-09 ( for 3 consecutive months): Chronic kidney disease 15 or less: Kidney failureCHRIST[facility] – LongviewGlucose Vgsxm5274-88-08 19:37:00* Test Item Value Reference Range Interpretation Comments Glucose Level (test code = IEJ8369) 102 74-118 [facility] LongviewCalcium Unnjy5568-38-24 19:37:00* Test Item Value Reference Range Interpretation Comments Calcium Level (test code = 85340-6) 9.3 8.4-10.2 [facility] LongviewTotal Gwyahqsmg9644-63-48 19:37:00* Test Item Value Reference Range Interpretation Comments Total Bilirubin (test code = 1975-2) 0.5 0.2-1.2 [facility] LongviewAspartate Amino Transf (AST/SGOT) 2019-02-17 19:37:00* Test Item Value Reference Range Interpretation Comments Aspartate Amino Transf (AST/SGOT) (test code = Aspartate Amino Transf (AST/SGOT)) 19 5-34 [facility] LongviewAlanine Aminotransferase (ALT/SGPT) 2019-02-17 19:37:00* Test Item Value Reference Range Interpretation Comments Alanine Aminotransferase (ALT/SGPT) (test code = 1742-6) 11 0-55 [facility] LongviewTotal Uwttyge4678-22-82 19:37:00* Test Item Value Reference Range Interpretation Comments Total Protein (test code = 2885-2) 6.9 6.5-8.1 [facility] LongviewAlbumin2019-04-24 19:37:00* Test Item Value Reference Range Interpretation Comments Albumin (test code = 1751-7) 3.1 3.5-5.0 L [facility] LongviewGlobulin2019-04-24 19:37:00* Test Item Value Reference Range Interpretation Comments Globulin (test code = 46395-4) 3.8 2.3-3.5 H [facility] LongviewAlbumin/Globulin Qbcqc3121-13-32 19:37:00 * Test Item Value Reference Range Interpretation Comments Albumin/Globulin Ratio (test code = 1759-0) 0.8 0.8-2.0 [facility] LongviewAlkaline Kzswjwltryk8583-00-15 19:37:00* Test Item Value Reference Range Interpretation Comments Alkaline Phosphatase (test code = 6768-6) 67 40-150 [facility] LongviewCreatine Fqqsyh5245-39-87 19:37:00* Test Item Value Reference Range Interpretation Comments Creatine Kinase (test code = 2157-6) 67 29-168 [facility] LongviewCreatine Egcgxe3461-76-58 19:37:00* Test Item Value Reference Range Interpretation Comments Creatine Kinase (test code = 2157-6) 67 29-168 [facility] LongviewProthrombin Vlxq7986-14-17 19:30:00* Test Item Value Reference Range Interpretation Comments Prothrombin Time (test code = 5902-2) 13.7 11.9-14.5 [facility] LongviewProthromb Time International Ratio 2019-02-17 19:30:00* Test Item Value Reference Range Interpretation Comments Prothromb Time International Ratio (test code = 6301-6) 1.00 Oral Anticoagulant Therapy INR Values:1. Low Intensity Therapy 1.5 - 2.02 . Moderate Intensity Therapy 2.0 - 3.03. High Intensity Therapy(1) 2.5 - 3. 54. High Intensity Therapy(2) 3.0 - 4.05. Panic Value INR > 5.0 [facility] LongviewActivated Partial Thromboplast Time 2019-02-17 19:30:00* Test Item Value Reference Range Interpretation Comments Activated Partial Thromboplast Time (test code = 45225-4) 28.1 23.8-35.5 [facility] LongviewProthrombin Qxyi0506-02-93 19:30:00* Test Item Value Reference Range Interpretation Comments Prothrombin Time (test code = 5902-2) 13.7 11.9-14.5 [facility] LongviewProthromb Time International Ratio 2019-02-17 19:30:00* Test Item Value Reference Range Interpretation Comments Prothromb Time International Ratio (test code = 6301-6) 1.00 Oral Anticoagulant Therapy INR Values:1. Low Intensity Therapy 1.5 - 2.02 . Moderate Intensity Therapy 2.0 - 3.03. High Intensity Therapy(1) 2.5 - 3. 54. High Intensity Therapy(2) 3.0 - 4.05. Panic Value INR > 5.0 [facility] LongviewActivated Partial Thromboplast Time 2019-02-17 19:30:00* Test Item Value Reference Range Interpretation Comments Activated Partial Thromboplast Time (test code = 03427-3) 28.1 23.8-35.5 [facility] LongviewWhite Blood Piluv0114-25-40 19:25:00* Test Item Value Reference Range Interpretation Comments White Blood Count (test code = 6690-2) 6.76 4.8-10.8 [facility] LongviewRed Blood Iodfh2618-36-50 19:25:00* Test Item Value Reference Range Interpretation Comments Red Blood Count (test code = 789-8) 2.47 3.6-5.1 L [facility] LongviewHemoglobin2019-04-24 19:25:00* Test Item Value Reference Range Interpretation Comments Hemoglobin (test code = 11629-0) 7.6 12.0-16.0 L [facility] LongviewHematocrit2019-04-24 19:25:00* Test Item Value Reference Range Interpretation Comments Hematocrit (test code = 4544-3) 25.1 34.2-44.1 L [facility] LongviewMean Corpuscular Blxasf8495-86-16 19:25:00* Test Item Value Reference Range Interpretation Comments Mean Corpuscular Volume (test code = 787-2) 101.6 81-99 H [facility] LongviewMean Corpuscular Ehnucfumtc6617-29-98 19:25:00* Test Item Value Reference Range Interpretation Comments Mean Corpuscular Hemoglobin (test code = 785-6) 30.8 28-32 [facility] LongviewMean Corpuscular Hemoglobin Concent 2019-02-17 19:25:00* Test Item Value Reference Range Interpretation Comments Mean Corpuscular Hemoglobin Concent (test code = 786-4) 30.3 31-35 L [facility] LongviewRed Cell Distribution Rclrl7812-91-99 19:25:00* Test Item Value Reference Range Interpretation Comments Red Cell Distribution Width (test code = 07739-3) 15.5 11.7 -14.4 H [facility] LongviewPlatelet Xcapz0036-46-54 19:25:00* Test Item Value Reference Range Interpretation Comments Platelet Count (test code = 777-3) 247 140-360 [facility] LongviewNeutrophils (%) (Auto)2019-02-17 19:25:00 * Test Item Value Reference Range Interpretation Comments Neutrophils (%) (Auto) (test code = 94960-6) 70.1 38.7-80.0 [facility] LongviewLymphocytes (%) (Auto)2019-02-17 19:25:00 * Test Item Value Reference Range Interpretation Comments Lymphocytes (%) (Auto) (test code = 736-9) 12.7 18.0-39.1 L [facility] LongviewMonocytes (%) (Auto)2019-02-17 19:25:00* Test Item Value Reference Range Interpretation Comments Monocytes (%) (Auto) (test code = 5905-5) 14.1 4.4-11.3 H [facility] [facility] ([facility])2019-02-17 19:25:00 * Test Item Value Reference Range Interpretation Comments Eosinophils (%) (Auto) (test code = 713-8) 1.6 0.0-6.0 [facility] ([facility]2019-02-17 19:25:00* Test Item Value Reference Range Interpretation Comments Basophils (%) (Auto) (test code = 706-2) 0.9 0.0-1.0 [facility] %2019-02-17 19:25:00* Test Item Value Reference Range Interpretation Comments IM GRANULOCYTES % (test code = IM GRANULOCYTES %) 0.6 0.0- 1.0 [facility] # (Auto)2019-02-17 19:25:00* Test Item Value Reference Range Interpretation Comments Neutrophils # (Auto) (test code = 751-8) 4.7 2.1-6.9 [facility] # (Auto)2019-02-17 19:25:00* Test Item Value Reference Range Interpretation Comments Lymphocytes # (Auto) (test code = 30149-3) 0.9 1.0-3.2 L [facility] # (Auto)2019-02-17 19:25:00* Test Item Value Reference Range Interpretation Comments Monocytes # (Auto) (test code = 742-7) 1.0 0.2-0.8 H [facility] # (Auto)2019-02-17 19:25:00* Test Item Value Reference Range Interpretation Comments Eosinophils # (Auto) (test code = 711-2) 0.1 0.0-0.4 [facility] # (Auto)2019-02-17 19:25:00* Test Item Value Reference Range Interpretation Comments Basophils # (Auto) (test code = 704-7) 0.1 0.0-0.1 [facility] Immature Granulocyte (auto 2019-02-17 19:25:00* Test Item Value Reference Range Interpretation Comments Absolute Immature Granulocyte (auto (vikki t code = Absolute Immature Granulocyte (auto) 0.04 0-0.1 [facility]ARD[facility] KZUVXEY0442-27-55 04:00:002.3 [facility] GRICXYB6468-40-49 04:00:001.6[facility] VHXJTBS5135-40-69 04:00:00<0.02[facility] IOIOWHI8905-44-35 04:00:0069[facility]annCHEM IQNCW5626-80-89 04:00:93124Fbvubqkp HermannCHEM NCEWI8408-40-04 04:00:0026[facility]annCHE[facility] VYGNU2837-14-10 04:00:004.0 [facility] RAYLD0606-47-12 04:00:001.0[facility]annCHE[facility] PANEL 2014-02-25 04:00:000.3[facility]annCHE[facility] AMRFV6069-96-47 04:00:0075[facility]annCHEM XMYKC2974-09-41 04:00:003.8[facility]annCHE[facility] RIYRC1263-82-62 04:00:009.0[facility]annCHE[facility] SORNW8993-33-02 04:00:007.8[facility]annCHE[facility] YJYZZ9467-38-36 04:00:0016.6[facility]annCHEM PCHUK6732-65-44 04:00:0021 [facility]annCHE[facility] TQXLB5522-00-37 04:00:68668Dmuyjdvm HermannCHEM PANEL 2014-02-25 04:00:55131Xdmmpxvg HermannCHEM MUIZA5086-62-12 04:00:004.6[facility]annCHE[facility] EZVYL7370-73-48 04:00:0021[facility]annCHE[facility] YWPGF9180-22-55 04:00:001.8[facility]annCHE[facility] EFYWC9111-17-66 04:00:0015[facility]annCHEM QWOWJ7554-17-83 04:00:24928Muaenjiy HermannCHEM JBDRT6695-70-25 04:00:0020 [facility]annCHE[facility] CJZXN4794-84-32 04:00:0038[facility]annHEMATOLOGY 2014-02-25 04:00:0072.5[facility] MzrszimXKBMRRIHVL5241-28-90 04:00:0014.2[facility] TksprifASAULXMDMZ7591-65-94 04:00:00Normal (02/24/14 11:00 PM)[facility] BBPPVKLLJG0596-15-49 04:00:000.9[facility] ZmmppjyYMECDAXBQI6237-26-17 04:00:002.7 [facility] JftzfmtEECAUABIEP6538-51-59 04:00:000.3[facility]annHEMATOLOGY 2014-02-25 04:00:000.2[facility] LknstnfSSAVPGBVRB0999-30-96 04:00:00Normal (02/24/14 11:00 PM)[facility] PnauqiwMMXFTQYMLZ7874-82-33 04:00:002.1[facility] RurjzxjWOXPQTWLMD2054-56-49 04:00:001.5[facility] BwgqjuoWGTAKLFVGI5123-05-48 04:00:007.4[facility] ArkcjjwDMQTFSUKGD8101-30-30 04:00:008.5[facility] [place] VIBADPUYLV6043-28-35 04:00:00* Test Item Value Reference Range Interpretation Comments PTT (test code = PTT) 29.1 s 22.9-35.8 [facility] YohgucdAPPEGYCLNQ2297-64-86 04:00:00* Test Item Value Reference Range Interpretation Comments PT (test code = PT) 12.7 s 12.0-14.7 [facility] UpuuzddKKLWDTKURW6214-27-86 04:00:000.96[facility]annHEMATOLOGY 2014-02-25 04:00:0011.5[facility] UbhmgqqVPTOIXBUVG0114-17-50 04:00:003.71[facility] BjrzggtOZMAVRYYJB9686-60-12 04:00:0010.2[facility] IttalkxESLJDWXSEF3101-41-65 04:00:0034.3[facility] IavlyqkWSDOLZEYYE5582-73-29 04:00:0033.6[facility] [place] KIHFBQXCHU8345-70-83 04:00:00* Test Item Value Reference Range Interpretation Comments MCH (test code = MCH) 31.0 pg 27.0-31.0 [facility] DvukfrgBTBBWPYGCL5443-44-60 04:00:0092.4[facility] HermannHEMATOLOGY 2014-02-25 04:00:0011.1[facility] VaxadomDIQCRDGWFV0721-25-51 04:00:65017Ndhuudcw SounvuxEROVTBTXAD3153-88-21 04:00:0013.6[facility]
--- OUTSIDE RECORDS SUMMARY | 2020-07-31 19:29 | XMS REPORT | Continuity of Care Document ---
Author Author Kole Opelika Adim8JENI [facility] [employer] Address Unknown Phone Unavailable Care Team Providers Care Assistant Professor Of Dietetics Name Role Phone [employer] Unavailable Un available Problems Problem Status Onset Date Classification Date Reported Comments Source Encounter for general adult medical exam ination with abnormal findings 02/04/2018 05/05/2018 [facility] [place] Discharge Diagnosis: Acute gastritis 02/25/2014 02/27/2014 [facility] CHEST PAIN Active 02/24/2014 [facility] Epidermoid cyst of skin (disorder) Active 05/10/2008 Problem 02/19/2019 Data migrated from [employer] on 03/25. [facility] [place] Urgent desire to urinate (finding) Active 04/26/2008 Problem 02/19/2019 Data migrated from [employer] on 03/25. [facility] [place] Arthritis (disorder) Active Problem 02/19/2019 Data migrated from [employer] on 03/25/15. [facility] [place] Benign hypertension (disorder) Active Problem Data migrated from [employer] on 03/25. [facility] [place] Coronary arteriosclerosis (disorder) Active Problem Data migrated from [employer] on 03/25. [facility] [place] Hypercholesterolemia (disorder) Active Problem Data migrated from [employer] on 03/25. [facility] [place] Hypothyroidism (disorder) Acti ve Problem Data migrated from [employer] on 03/25/15. [facility] [place] Obesity (disorder) Active Problem 02/19/2019 Data migrated from [employer] on 03/25/15. [facility] [place] Atelectasis 05/05/2018 [facility] [place] Medications Medication Details Route Status Patient Instructions Ordering Provider Order Date Source lansoprazole 30 MG Enteric Coated Capsule [Prevacid] 30 mg = 1 cap, PO, Daily, # 30 cap, 0 Refill(s) Active 02/25/2014 [facility] Morphine 1 mg, Route: IV, ONCE , Dosing Weight 80.909, kg, Start date: 02/25/14 1:43:00, Stop date: 02/25/14 1:43:00 Inactive 02/25/2014 [facility] Saline Flush 0.9% Notes: (Same as: BD Posiflush) No Longer Active 02/25/2014 [facility] Allergies, Adverse Reactions, Alerts Substance Category Reaction Severity Reaction type Status Date Reported Comments Source penicillins<sup>1</sup> Assert ion Drug aller gy Active 06/23/2004 Data migrated from [employer] on 05/25/15. Originally documented as PCN. [facility] [place] erythromycin<sup>2</sup> Asser tion Drug aller gy Active 06/23/2004 Data migrated from [employer] on 02/23/15. Originally documented as ERYTHROMYCIN. [place] erythromycin Assertion Drug allergy Active 06/23/2004 [facility] penicillins Assertion Propensity to adverse reacti ons to drug Active 06/23/2004 [facility] macrolide antibiotics Assertion Drug allergy [facility] [place] Levaquin Assertion Drug allergy Active [facility] [place] Immunizations Immunization Date Given Site Status Last Updated Comments Source pneumococcal 23-valent vaccine<sup>1</sup> 10/27/2007 completed GE Result Comment: pneumovax. Migrated from OBS ; Data migrated from [employer] on 11/27/2015. YEVGENIY Rivera Hx influenza vaccine-unspecified<sup>2</sup> 07/27/2007 completed GE Result Comment: fluvax. [place] rated from OBS ; Data migrated from [employer] on 11/27/2015. [place] Results Order Name Results Value Reference Range Date Interpretation Comments Source CARDIAC ENZYMES CK MB Index 2.3 0.0 - 2.5 02/25/2014 [facility] CARDIAC ENZYMES CK MB 1.6 0.5 - 3.6 02/25/2014 [facility] CARDIAC ENZYMES Troponin-I <0.02 0.00 - 0.40 02/25/2014 [facility] CARDIAC ENZYMES Total CK 69 12 - 191 02/25/2014 [facility] CHEM PANEL Lipase Lvl 183 73 - 393 02/25/2014 [facility] CHEM PANEL eGFR 26 02/25/2014 <sup>1</sup>Result Comment: The eGFR is calculated using the CKD-EPI formula. In most young, healthy individuals the eGFR will be >90 mL/min/1.73m2. The eGFR declines with age. An eGFR of 60-89 may be normal in some populations, particularly the elderly, for whom the CKD-EPI formula has not been extensively validated. Use of the eGFR is not recommended in the following populations:& lt;br/>
Individuals with unstable creatinine concentrations, including patients [...] should be multiplied by the estimated BMI. [facility] CHEM PANEL Globulin 4.0 2.0 - 4.0 02/25/2014 [facility] CHEM PANEL A/G Ratio 1.0 0.7 - 1.6 02/25/2014 [facility] CHEM PANEL Bili Total 0.3 0.2 - 1.3 02/25/2014 [facility] CHEM PANEL Alk Phos 75 39 - 136 02/25/2014 [facility] CHEM PANEL Albumin Lvl 3.8 3.5 - 5.0 02/25/2014 [facility] CHEM PANEL Calcium Lvl 9.0 8.5 - 10.5 02/25/2014 [facility] CHEM PANEL Total Protein 7.8 6.4 - 8.4 02/25/2014 [facility] CHEM PANEL AGAP 16.6 10.0 - 20.0 02/25/2014 [facility] CHEM PANEL B/C Ratio 21 6 - 25 02/25/2014 [facility] CHEM PANEL Chloride Lvl 101 95 - 109 02/25/2014 [facility] CHEM PANEL Sodium Lvl 133 135 - 145 02/25/2014 [facility] CHEM PANEL Potassium Lvl 4.6 3.5 - 5.1 02/25/2014 [facility] CHEM PANEL AST 21 0 - 37 02/25/2014 [facility] CHEM PANEL Creatinine Lvl 1.8 0.5 - 1.4 02/25/2014 [facility] CHEM PANEL ALT 15 0 - 65 02/25/2014 [facility] CHEM PANEL Glucose Lvl 135 70 - 99 02/25/2014 <sup>2</sup>Interpretive Data: Adult ref erence range values reflect the clinical guidelines
of the [place] [employer]. [facility] CHEM PANEL CO2 20 24 - 32 02/25/2014 [facility] CHEM PANEL BUN 38 7 - 22 02/25/2014 [facility] HEMATOLOGY Segs 72.5 45.0 - 75.0 02/25/2014 [facility] Lymphocytes 14.2 20.0 - 40.0 02/25/2014 [facility] RBC Morph Otilia l (02/24/14 11:00 PM) 02/25/2014 [facility] Monocytes # 0.9 0.0 - 0.8 02/25/2014 [facility] Eosinophils 2.7 0.0 - 4.0 02/25/2014 [facility] Eosinophils # 0.3 0.0 - 0.5 02/25/2014 [facility] Basophils # 0.2 0.0 - 0.2 02/25/2014 [facility] Plt Morph Otilia l (02/24/14 11:00 PM) 02/25/2014 [facility] Basophils 2.1 0.0 - 1.0 02/25/2014 [facility] Lymphocytes # 1.5 1.0 - 5.5 02/25/2014 [facility] Segs-Bands # 7.4 1.5 - 8.1 02/25/2014 [facility] Monocytes 8.5 2.0 - 12.0 02/25/2014 [facility] PTT 29.1 22.9 - 35.8 02/25/2014 <sup>4</sup>Interpretive Data: Heparin T herapeutic Range: 57 - 92 Seconds [facility] PT 12.7 12.0 - 14.7 02/25/2014 [facility] INR 0.96 0.85 - 1.17 02/25/2014 <sup>3</sup>Interpretive Data: RECOMMEND ED RANGES FOR PROTIME INR:
2.0-3.0 for most medical and surgical thromboembolic states.
2.5-3.5 for artificial heart valves and recurrent embolism.

INR SHOULD BE USED ONLY FOR PATIENTS ON STABLE ANTICOAGULANT THERAPY. [facility] Hgb 11.5 12.0 - 16.0 02/25/2014 [facility] RBC 3.71 4.20 - 5.40 02/25/2014 [facility] WBC 10.2 3.7 - 10.4 02/25/2014 [facility] Hct 34.3 36.0 - 48.0 02/25/2014 [facility] MCHC 33.6 32.0 - 36.0 02/25/2014 [facility] MCH 31.0 27.0 - 31.0 02/25/2014 [facility] MCV 92.4 81.0 - 99.0 02/25/2014 [facility] MPV 11.1 7.4 - 10.4 02/25/2014 [facility] HEMATOLOGY Platelet 224 133 - 450 02/25/2014 [facility] RDW 13.6 11.5 - 14.5 02/25/2014 [facility] Pathology Reports No Data Provided for This Section Diagnostic Reports Report Value Date Source Chest 2 views DX EXAM: Chest 2 views DX HISTORY: - 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 Mild to moderate diffuse interstitial process with small effusions. No pneumothorax. Mild discogenic degenerative changes are noted. IMPRESSION: Mild to moderate interstitial edema and small effusions. 02/16/2019 [facility] SIMON incl CAD [...] is recommended.(02/19/2019) This exam was interpreted at [id number] for SHAKA Jonse 15. Professional services are provided by the [facility] of Diagnostic Imaging. Juan Chacko M.D., cm/isabella:02/19/2018 08:21:53 Planning Technician(s): Natasha Wong, RT(R)(M), [facility] [place] [facility] sent: BI-RADS 1/2 Mammogram BI-RADS: 2 Benign 02/18/2018 YEVGENIY Rivera Bone Density [employer] MA BONE [...] for fracture. This exam was interpreted at [id number] for JERARDO Rivera, SL 15. Juan Chacko M.D., cm/isabella:02/19/2018 08:06:21 Planning Technician(s): Tg GUAJARDO)(Veronika), [facility] 02/18/2018 YEVGENIY Rivera Chest 2 views DX Exam: Two-vie w chest x-ray Reason for Exam: - Z00.01 [...] the thoracic spine. Impression: 1. Nonspecific atelectasis/mild airspac e consolidation seen within the left lung base, obscuring the left hemidiaphragm. 01/27/2018 YEVGENIY Rivera Consultation Notes No Data Provided for This Section Discharge Summaries No Data Provided for This Section History and Physicals No Data Provided for This Section Vital Signs Vital Sign Value Date Comments Source Respitory Rate 16 02/25/2014 [facility] Systolic (mm Hg) 148 02/25/2014 [facility] Diastolic (mm Hg) 65 02/25/2014 [facility] Temperature Oral (F) 98.0 F 02/25/2014 [facility] Heart Rate 62 02/25/2014 [facility] Systolic (mm Hg) 145 02/25/2014 [facility] Respitory Rate 16 02/25/2014 [facility] Diastolic (mm Hg) 62 02/25/2014 [facility] Heart Rate 56 02/25/2014 [facility] Respitory Rate 18 02/25/2014 [facility] Temperature Oral (F) 97.9 F 02/25/2014 [facility] Systolic (mm Hg) 151 02/25/2014 [facility] Diastolic (mm Hg) 63 02/25/2014 [facility] Heart Rate 63 02/25/2014 [facility] Encounters Location Location Details Encounter Type Encounter Number Reason For Visit Attending Provider ADM Date DC Date Status Source [facility] [id number] 01 Alen Serrano 02/25/2014 02/25/2014 [facility] [place] [facility] [id number] Kalyan Rob 01/27/2018 01/28/2018 [facility] [place] [facility] [place] [facility] [id number] Kalyan Rob 02/18/2018 02/19/2018 [facility] [place] [facility] [place] [facility] [id number] Kalyan Rob 02/16/2019 02/17/2019 [facility] [place] Procedures No Data Provided for This Section Assessment and Plan No Data Provided for This Section Plan of Care No Data Provided for This Section Social History Social History Date Source No data available for this section 02/17/2019 [facility] [place] Family History No Data Provided for This Section Advance Directives No Data Provided for This Section Functional Status No Data Provided for This Section
== END 2020-07-31 20:45 | disposition home or self-care (01) ==
LOC: ER 19:25
DX: R09.89 Other specified symptoms and signs involving the circulatory and respiratory systems (principal); R06.02 Shortness of breath; I10 Essential (primary) hypertension; E03.9 Hypothyroidism, unspecified; F41.9 Anxiety disorder, unspecified
CPT/HCPCS: 36415; 71045; 80053; 82550; 82553; 83880; 84484; 85025; 86850; 86900; 93005; 99284

== ENCOUNTER 2020-10-28 17:03 | Emergency (ER) | payer OTHER ==
[~2020-10-28] VITALS: Ht 154.9 cm; Wt 73.0 kg
[2020-10-28 17:37] LABS: BASOPHILS % 0.4 % (0.0-1.0); EOSINOPHILS % 0.2 % (0.0-6.0); HEMATOCRIT 30.9 % (34.2-44.1); HEMOGLOBIN 9.8 g/dL (12.0-16.0); LYMPHOCYTES % 19.4 % (18.0-39.1); MEAN CORPUSCULAR HEMOGLOBIN 31.3 pg (28-32); MEAN CORPUSCULAR HGB CONC 31.7 g/dL (31-35); MEAN CORPUSCULAR VOLUME 98.7 fL (81-99); MONOCYTES # (AUTO) 0.6 (0.2-0.8); MONOCYTES % 11.6 % (4.4-11.3); NEUTROPHILS # (AUTO) 3.4 (2.1-6.9); NEUTROPHILS % 67.4 % (38.7-80.0); PLATELET COUNT 187 x10e3/uL (140-360); RED BLOOD COUNT 3.13 x10e6/uL (3.6-5.1); RED CELL DISTRIBUTION WIDTH 13.1 % (11.7-14.4)
[2020-10-28 17:53] LABS: ALBUMIN/GLOBULIN RATIO 0.8 (0.8-2.0); ANION GAP 21.3 mmol/L (8-16); CALCIUM 8.3 mg/dL (8.4-10.2); CREATININE, SERUM 3.6 mg/dL (0.57-1.11); POTASSIUM 3.3 mmol/L (3.5-5.1)
[2020-10-28 17:59] LABS: CREATINE KINASE MB 1.7 ng/mL (0-5.0)
== END 2020-10-28 19:14 | disposition home or self-care (01) ==
LOC: ER 17:26
DX: U07.1 COVID-19 (principal); R05 Cough; I50.9 Heart failure, unspecified; R94.4 Abnormal results of kidney function studies; I10 Essential (primary) hypertension; E03.9 Hypothyroidism, unspecified; D64.9 Anemia, unspecified; F41.9 Anxiety disorder, unspecified
CPT/HCPCS: 36415; 80053; 82550; 82553; 83880; 84484; 85025; 93005; 99282